=== PATIENT | male | born 1930 | race Caucasian/White ===

== ENCOUNTER 2018-01-07 18:38 | Emergency (ER) | payer OTHER ==
--- NOTE | 2018-01-07 19:25 | RAD REPORT ---
EXAM DESCRIPTION: CT - Abdomen Pelvis Wo Contrast - 01/07/2018 7:10 pm CLINICAL HISTORY: Abdominal pain. COMPARISON: None TECHNIQUE: CT imaging of the abdomen and pelvis was performed without contrast. Solid organ, bowel a nd vascular assessment is limited due to lack of IV and oral contrast. All CT scans are performed using dose optimization technique as appropriate and may include automated exposure control or mA/KV adjustment according to patient size. FINDINGS: Linear bibasilar subsegmental atelectasis in both lung bases, slightly greater on the righ t.Gastrostomy tube tip is in the stomach. The liver, spleen, pancreas, adrenal glands and kidneys are within normal limits for a limited non-co ntrast examination.Significant inflammatory changes surround the gallbladder with pericholecystic flu id present. Secondary inflammatory dilatation of the duodenal C-loop suspected. The findings are most likely related to acute cholecystitis. No bowel obstruction, free air, free fluid or abscess. The appendix is normal. Small fat containing inguinal hernias bilaterally, slightly larger on the right. The osseous structures are within normal limits.Lumbar degenerative changes are present. IMPRESSION: Acute cholecystitis is suspected. A limited non-contrast examination was performed as detailed.
--- NOTE | 2018-01-07 19:29 | EDPHYS ---
Physician Documentation [facility] Name: Payam Mack Age: 87 yrs Sex: Male : 1930 Arrival Date: 01/07/2018 Time: 18:42 Bed 18 Private MD: ED Physician Khoi Nice HPI: 01/07 19:07 This 87 yrs old Male presents to ER via EMS with complaints of Problem With snw Feeding Tube, Abdominal Distention. 19:07 Onset: The symptoms/episode began/occurred suddenly, last night. Associated signs and snw symptoms: Pertinent positives: pain to right upper and lower quad. The patient has not experienced similar symptoms in the past. It is unknown whether or not the patient has recently seen a physician. Historical: - Allergies: 18:47 No Known Allergies; ed1 - Home Meds: 18:47 levothyroxine 50 mcg tab 1 tab once daily [Active]; methylprednisolone 4 mg Oral tab 1 ed1 tab twice a day [Active]; amlodipine 5 mg tab 1 tab once daily [Active]; sertraline 25 mg oral tab 1 tab once daily [Active]; - PMHx: 18:47 Hypothyroidism; Hypertension; Depression; ed1 21:00 prostate cancer; polymyalgia rheumatica; ed1 - PSHx: 18:47 G-tube placement; ed1 21:00 back surgery; ed1 - Immunization history:: Adult Immunizations up to date. - Social history:: Smoking status: Patient/guardian denies using tobacco. ROS: 19:06 Constitutional: Negative for fever, chills, and weight loss, Eyes: Negative for injury, snw pain, redness, and discharge, ENT: Negative for injury, pain, and discharge, Neck: Negative for injury, pain, and swelling, Cardiovascular: Negative for chest pain, palpitations, and edema, Respiratory: Negative for shortness of breath, cough, wheezing, and pleuritic chest pain, Abdomen/GI: Positive for abdominal pain, can't burp, nausea, no vomiting, diarrhea, or constipation, Back: Negative for injury and pain. 19:07 MS/Extremity: Negative for injury and deformity, Skin: Negative for injury, rash, and snw discoloration, Neuro: Negative for headache, weakness, numbness, tingling, and seizure, Psych: Negative for depression, anxiety, suicide ideation, homicidal ideation, and hallucinations. Exam: 18:59 Constitutional: This is a well developed, well nourished patient who is awake, alert, snw and in no acute distress. Head/Face: Normocephalic, atraumatic. Eyes: Pupils equal round and reactive to light, extra-ocular motions intact. Lids and lashes normal. Conjunctiva and sclera are non-icteric and not injected. Cornea within normal limits. Periorbital areas with no swelling, redness, or edema. ENT: Nares patent. No nasal discharge, no septal abnormalities noted. Tympanic membranes are normal and external auditory canals are clear. Oropharynx with no redness, swelling, or masses, exudates, or evidence of obstruction, uvula midline. Mucous membranes moist. Neck: Trachea midline, no thyromegaly or masses palpated, and no cervical lymphadenopathy. Supple, full range of motion without nuchal rigidity, or vertebral point tenderness. No Meningismus. Chest/axilla: Normal chest wall appearance and motion. Nontender with no deformity. No lesions are appreciated. Cardiovascular: Regular rate and rhythm with a normal S1 and S2. No gallops, murmurs, or rubs. Normal PMI, no JVD. No pulse deficits. Respiratory: Lungs have equal breath sounds bilaterally, clear to auscultation and percussion. No rales, rhonchi or wheezes noted. No increased work of breathing, no retractions or nasal flaring. Back: No spinal tenderness. No costovertebral tenderness. Full range of motion. Skin: Warm, dry with normal turgor. Normal color with no rashes, no lesions, and no evidence of cellulitis. MS/ Extremity: Pulses equal, no cyanosis. Neurovascular intact. Full, normal range of motion. Neuro: Awake and alert, GCS 15, oriented to person, place, time, and situation. Cranial nerves II-XII grossly intact. Motor strength 5/5 in all extremities. Sensory grossly intact. Cerebellar exam normal. Normal gait. 18:59 Abdomen/GI: Inspection: distension, that is moderate, Bowel sounds: tinkling, Palpation: severe abdominal tenderness, in the right upper quadrant and right lower quadrant, ventral hernia, soft, reducible. Vital Signs: 18:47 BP 108 / 61; Pulse 85; Resp 18; Temp 98.3(O); Pulse Ox 94% on R/A; Weight 74.84 kg (R); ed1 Height 5 ft. 7 in. (170.18 cm) (R); Pain 6/10; 20:01 BP 128 / 63; Pulse 83; Resp 18; Pulse Ox 95% on R/A; Pain 6/10; ed1 21:02 BP 104 / 52; Pulse 88; Resp 15; Temp 97.2(TE); Pulse Ox 96% on 2 lpm NC; Pain 2/10; ed1 22:32 BP 105 / 60; Pulse 80; Resp 18; Pulse Ox 96% on 2 lpm NC; kr2 18:47 Body Mass Index 25.84 (74.84 kg, 170.18 cm) ed1 MDM: 19:14 Patient medically screened. snw 19:29 Data reviewed: vital signs, nurses notes. Data interpreted: Pulse oximetry: on room air snw is 94 %. Interpretation: acceptable. Counseling: I had a detailed discussion with the patient and/or guardian regarding: the historical points, exam findings, and any diagnostic results supporting the discharge/admit diagnosis, radiology results, the need for further work-up and treatment in the hospital. Physician consultation: Bridgett Lucas MD was called at 19:29, was contacted at 19:29, regarding admission, to the medical/surgical unit. would like consultation with Dr. Dr. Gunter. 20:00 ED course: Dr. Gunter evaluated pt in ED and recommends transfer for higher level of snw care to Dr. Rivas. Dr. Gunter discussed pt with Dr. Rivas who accepts pt consult at [facility]. Transfer center contacted.. 20:06 Physician consultation: in the emergency department to see patient at 20:00, recommends snw transfer for higher level of care.. 01/07 18:56 Order name: Amylase, Serum; Complete Time: 19:59 snw 01/07 18:56 Order name: Basic Metabolic Panel; Complete Time: 19:59 snw 01/07 18:56 Order name: CBC with Diff; Complete Time: 21:24 snw 01/07 18:56 Order name: Creatinine for Radiology; Complete Time: 19:56 snw 01/07 18:56 Order name: Hepatic Function; Complete Time: 19:59 snw 01/07 18:56 Order name: Lipase; Complete Time: 19:59 snw 01/07 18:56 Order name: Urine Microscopic Only snw 01/07 18:56 Order name: Blood Culture Adult (2) snw 01/07 18:59 Order name: CT Abd/Pelvis - Without Cont; Complete Time: 19:26 snw 01/07 21:08 Order name: CBC Smear Scan; Complete Time: 21:24 [facility] 01/07 18:56 Order name: IV Saline Lock; Complete Time: 19:06 snw 01/07 18:56 Order name: Labs collected and sent; Complete Time: 19:06 snw Administered Medications: 20:02 Drug: Zosyn 3.375 grams Route: IVPB; Infused Over: 60 mins; Site: right forearm; ed1 22:29 Follow up: Response: No adverse reaction; IV Status: Completed infusion kr2 20:03 Drug: NS 0.9% 1000 ml Route: IV; Rate: 75 ml/hr; Site: right forearm; ed1 22:29 Follow up: IV Status: Infusion continued upon transfer kr2 20:26 Drug: fentaNYL (PF) 25 mcg Route: IVP; Site: right forearm; ak1 22:29 Follow up: Response: No adverse reaction; Pain is decreased kr2 22:30 Drug: fentaNYL (PF) 25 mcg Route: IVP; Site: right forearm; kr2 22:41 Follow up: Response: No adverse reaction; Pain is decreased kr2 Disposition: 01/07/18 20:37 Transfer ordered to [facility]. Diagnosis are Acute abdomen, Cholecystitis. - Reason for transfer: Higher level of care. - Accepting physician is Olive. - Condition is Fair. - Problem is new. - Symptoms have worsened. Addendum: 01/09/2018 10:57 Co-signature as Attending Physician, Khoi Nice MD I agree with the assessment and w a plan of care. Signatures: Dispatcher [employer] EDMS Kandi Andujar, LITHOGRAPHER HELPER-C LITHOGRAPHER HELPER-Csnw Sue Spivey, MOTORCYCLE SUBASSEMBLY REPAIRER MOTORCYCLE SUBASSEMBLY REPAIRER ed1 Angi Levy, RN RN ak1 Martín Schwartz MD MD gs Appiah, William, MD MD wa Reaves, Karey, RN RN kr2 Corrections: (The following items were deleted from the chart) 01/07 19:01 18:56 Abdomen Pelvis W Con+CT.RAD.BRZ ordered. EDAL EDMS 20:00 19:28 Hospitalization Ordered by Bridgett Lucas MD for Inpatient Admission. Preliminary snw diagnosis is Acute abdomen; Cholecystitis. Bed requested for Telemetry/MedSurg (Inpatient). Status is Inpatient Admission. Condition is Fair. Problem is new. Symptoms have worsened. UTI on Admission? No. snw 22:41 20:37 01/07/2018 20:37 Transfer ordered to [facility]. Diagnosis is kr2 Acute abdomen; Cholecystitis. Reason for transfer: Higher level of care. Accepting physician is Olive. Condition is Fair. Problem is new. Symptoms have worsened. snw
--- NOTE | 2018-01-07 19:29 | ER ---
Nurse's Notes [facility] Name: Payam Mack Age: 87 yrs Sex: Male : 1930 Arrival Date: 01/07/2018 Time: 18:42 Bed 18 Private MD: Diagnosis: Acute abdomen;Cholecystitis Presentation: 01/07 18:43 Presenting complaint: EMS states: He has been having trouble with his g-tube and ed1 feeling bloated. Transition of care: patient was not received from another setting of care. Onset of symptoms was January 07, 2018. Initial Sepsis Screen: Does the patient meet any 2 criteria? No. Patient's initial sepsis screen is negative. Does the patient have a suspected source of infection? No. Patient's initial sepsis screen is negative. Care prior to arrival: IV initiated. 22 GA, in the right forearm, Glucose check: 124. 18:43 Method Of Arrival: EMS: [facility] ed1 19:32 Acuity: KATE 3 ph Triage Assessment: 18:47 General: Appears uncomfortable, Behavior is calm, cooperative. Pain: Complains of pain ed1 in abdomen Pain does not radiate. Pain currently is 6 out of 10 on a pain scale. Quality of pain is described as aching, Pain began 1 day ago. Is continuous. GI: Abdomen is distended, PEG tube in place, clamped. Site clean. Bowel sounds hypoactive in right upper quadrant, right lower quadrant and left lower quadrant Abdomen is tender to palpation X 4 quads. Reports bloating, nausea, Patient currently denies diarrhea, vomiting. : No signs and/or symptoms were reported regarding the genitourinary system. Historical: - Allergies: 18:47 No Known Allergies; ed1 - Home Meds: 18:47 levothyroxine 50 mcg tab 1 tab once daily [Active]; methylprednisolone 4 mg Oral tab 1 ed1 tab twice a day [Active]; amlodipine 5 mg tab 1 tab once daily [Active]; sertraline 25 mg oral tab 1 tab once daily [Active]; - PMHx: 18:47 Hypothyroidism; Hypertension; Depression; ed1 21:00 prostate cancer; polymyalgia rheumatica; ed1 - PSHx: 18:47 G-tube placement; ed1 21:00 back surgery; ed1 - Immunization history:: Adult Immunizations up to date. - Social history:: Smoking status: Patient/guardian denies using tobacco. Screenin:43 Abuse screen: Denies threats or abuse. Denies injuries from another. Nutritional ed1 screening: No deficits noted. Tuberculosis screening: No symptoms or risk factors identified. Fall Risk None identified. Assessment: 18:43 General: Appears uncomfortable, Behavior is calm, cooperative. Pain: Complains of pain ed1 in abdomen Pain does not radiate. Pain currently is 6 out of 10 on a pain scale. Quality of pain is described as aching, throbbing, Pain began 2-3 days ago. Is continuous. Neuro: Level of Consciousness is awake, alert, obeys commands, Oriented to person, place, time, situation, Executive Admin are equal bilaterally. Cardiovascular: Denies chest pain, Heart tones S1 S2 present. Respiratory: Airway is patent Respiratory effort is even, unlabored, Respiratory pattern is regular, symmetrical, Breath sounds are clear bilaterally. GI: Abdomen is distended, PEG tube in place, clamped. Site clean. Bowel sounds hypoactive in right upper quadrant, right lower quadrant and left lower quadrant Abdomen is tender to palpation X 4 quads. Reports nausea. : No signs and/or symptoms were reported regarding the genitourinary system. EENT: No signs and/or symptoms were reported regarding the EENT system. Derm: Skin is fragile, is thin, with poor turgor Skin is dry, Skin is normal, Skin temperature is warm. Musculoskeletal: Circulation, motion, and sensation intact. 20:01 Reassessment: Patient appears in no apparent distress at this time. No changes from ed1 previously documented assessment. Patient and/or family updated on plan of care and expected duration. Pain level reassessed. Patient is alert, oriented x 3, equal unlabored respirations, skin warm/dry/pink. Patient states symptoms have not improved. 20:32 Reassessment: Applied 2 NC, oxygen saturation dropped to 89% on room air., increased to bs1 95%. 21:02 Reassessment: Patient appears in no apparent distress at this time. No changes from ed1 previously documented assessment. Patient and/or family updated on plan of care and expected duration. Pain level reassessed. Patient is alert, oriented x 3, equal unlabored respirations, skin warm/dry/pink. Patient states feeling better. 22:25 Reassessment: Report called to receiving nurse NEFTALI Small at [facility]. kr2 22:31 Reassessment: Patient appears in no apparent distress at this time. Patient and/or kr2 family updated on plan of care and expected duration. Pain level reassessed. Patient is alert, oriented x 3, equal unlabored respirations, skin warm/dry/pink. Medicated for pain prior to transport. Report given to Vikram Dubose [facility]. Vital Signs: 18:47 BP 108 / 61; Pulse 85; Resp 18; Temp 98.3(O); Pulse Ox 94% on R/A; Weight 74.84 kg (R); ed1 Height 5 ft. 7 in. (170.18 cm) (R); Pain 6/10; 20:01 BP 128 / 63; Pulse 83; Resp 18; Pulse Ox 95% on R/A; Pain 6/10; ed1 21:02 BP 104 / 52; Pulse 88; Resp 15; Temp 97.2(TE); Pulse Ox 96% on 2 lpm NC; Pain 2/10; ed1 22:32 BP 105 / 60; Pulse 80; Resp 18; Pulse Ox 96% on 2 lpm NC; kr2 18:47 Body Mass Index 25.84 (74.84 kg, 170.18 cm) ed1 ED Course: 18:42 Patient arrived in ED. iw 18:42 Sue Spivey LVN is Primary Nurse. ed1 18:43 Patient has correct armband on for positive identification. Placed in gown. Bed in low ed1 position. Call light in reach. Side rails up X2. Pulse ox on. NIBP on. 18:47 Arm band placed on left wrist. ed1 18:49 Kandi Andujar FNP-C [facility]. snw 18:49 Khoi Nice MD is Attending Physician. snw 19:[address] jj2 19:10 CT Abd/Pelvis - Without Cont In Process Unspecified. EDMS 19:11 CT completed. Patient tolerated procedure well. Patient moved back from CT. vm2 19:28 Bridgett Lucas MD is Hospitalizing Provider. snw 19:32 Triage completed. ph 21:52 Primary Nurse role handed off by Sue Spivey LVN ed1 22:33 No provider procedures requiring assistance completed. Patient transferred, IV remains kr2 in place. Administered Medications: 20:02 Drug: Zosyn 3.375 grams Route: IVPB; Infused Over: 60 mins; Site: right forearm; ed1 22:29 Follow up: Response: No adverse reaction; IV Status: Completed infusion kr2 20:03 Drug: NS 0.9% 1000 ml Route: IV; Rate: 75 ml/hr; Site: right forearm; ed1 22:29 Follow up: IV Status: Infusion continued upon transfer kr2 20:26 Drug: fentaNYL (PF) 25 mcg Route: IVP; Site: right forearm; ak1 22:29 Follow up: Response: No adverse reaction; Pain is decreased kr2 22:30 Drug: fentaNYL (PF) 25 mcg Route: IVP; Site: right forearm; kr2 22:41 Follow up: Response: No adverse reaction; Pain is decreased kr2 Outcome: 19:28 Decision to Hospitalize by Provider. snw 20:37 ER care complete, transfer ordered by MD. snw 22:33 Transferred by ground EMS to [facility], Transfer form completed. kr2 22:33 Condition: stable 22:33 Instructed on the need for transfer, Demonstrated understanding of instructions. 22:41 Patient left the ED. kr2 Signatures: Dispatcher [employer] EDMS Kandi Andujar, AIRPLANE TESTER-C AIRPLANE TESTER-Csnw Rob Vidal Irene, RN Sue Rosado, FACTORY HAND FACTORY HAND ed1 Angi Levy RN RN ak1 Juliette Hawk RN RN Violette Mora [facility] Janey Rinaldi RN RN kr2 Deja Lombardo RN RN bs1
[2018-01-07 19:42] LABS: Absolute Lymphocytes (CBC) 0.5 K/uL (0.7-4.9); Absolute Monocytes 0.6 K/uL (0.1-1.3); Absolute Neutrophil 14.4 K/uL (1.8-8.0); Basophils % 0.8 % (0-1.3); Eosinophils % 0.2 % (0-4.4); Lymphocytes % 3.3 % (15.3-44.8); MCH 31.4 pg (27.0-35.0); MCV 91.6 fL (80-100); MPV 7.1 fL (7.6-11.3); RBC Red Blood Cell Count 4.69 M/uL (4.33-5.43)
[2018-01-07] MEDS ORDERED: NA CHLORIDE 0.9% 1,000 ML ONE (19:42)
[2018-01-07] MEDS ORDERED: PIPER/TAZO/NS 3.375gm 3.375 GM/100 ML BAG ONE (19:42)
[2018-01-07 19:51] LABS: Potassium 3.9 mEq/L (3.6-5.0)
[2018-01-07 19:57] LABS: Albumin 3.7 g/dL (3.2-5.5); Bilirubin Direct 0.2 mg/dL (0-0.2); Bilirubin Total 1.1 mg/dL (0.3-1.2); Protein, Total 6.6 g/dL (6.0-8.3)
[2018-01-07] MEDS ORDERED: FENTANYL CITR 100 MCG/2 ML ONE ×2 (20:24→22:23)
[2018-01-07 21:07] LABS: Blood Morphology Comment NOT SEEN (NOT SEEN); Platelet Estimate ADEQ; Urine White Blood Cell Casts OK
--- NOTE | 2018-01-08 01:48 | CON ---
Date of Consultation: 01/07/2018 Diagnosis: Acute abdominal pain. History Of Present Illness: This is the case of an 87-year-old. The patient comes to us with about a week's history of epigastric and right upper quadrant pain. Brought to the ER, found to have duode nitis and cholecystitis with a lot of peritoneal inflammation over the area, and a surgical consult w as obtained. The patient states he has not eaten well for the last few days. He has been nauseous a nd vomiting, and he cannot get his food to go down. He feels like it stays in his stomach. He does not remember any problems before. He claimed he has no medical issues at all, with no surgeries. Ot herwise healthy as per . He denies any dysuria, hematuria, hematochezia, or melena. We do not k now when was his last colonoscopy; he does not remember. Past Medical History: As per , although the patient states he does not have any, the patient has hypertension and hypothyroidism. Past Surgical History: Includes G-tube placement in the past. Allergies: NONE. Social History: He does not smoke. He does not drink alcohol. Family History: Unremarkable. Review of Systems: Constitutional: The patient denies any fevers or chills. Gastrointestinal: The patient stated nausea, vomiting, and right upper quadrant pain. Respiratory: He denies any shortness of breath. Genitourinary: He denies any dysuria or hematuria. Physical Examination: General: The patient is awake and alert. HEENT: Pupils are equal and reactive, anicteric. Neck: Supple. Chest: Clear. Abdomen: Epigastric and right upper quadrant pain with Arceo sign positive. Rectal: Deferred. Extremities: Good capillary refill. Laboratory Data: Blood work shows WBC count of 15.7, hemoglobin of 14.7, and platelets of 165. Gluc ose 131, total bilirubin 1.1, and lipase 15. UA is pending. CAT scan of abdomen and pelvis, interpr eted by Dr. Worthington as acute cholecystitis with duodenitis and inflammation with dilatation of the duode nal C-loops. Significant inflammatory changes surrounding the gallbladder with pericholecystic fluid present. Assessment/recommendations: This is an 87-year-old patient with duodenitis, C-loop dilatation, inabi lity to have any foot intake, and cholecystitis too, with a lot of inflammatory changes in the perich olecystic and also periduodenal area. We suspect gallbladder may be the etiology of this. I discuss ed the case with Dr. Ulrich in [place] in a tertiary center. This patient is an 87-year-old. He has a lot of inflammation. This will require a higher level of care with some help to get this gall bladder out. He may even require a cystostomy tube in the gallbladder to let this cool down if Dr. Justina hurtado believes that medically he is okay and clinically he is okay to go for that. I explained t hat to the patient's family. They agree, and they are happy that the patient going to [place], and t he [facility] was called immediately. The patient right now is clinically stable for transfer. This case was discussed with the ER physician and the attending physician who agreed with the transfer. EDER/FREDDY Voice ID: [id number] Report ID: [id number]
== END 2018-01-07 22:41 | disposition short-term general hospital (02) | DRG 392 ==
LOC: ER 18:38 → ERHOLD 19:28 → UNDOADMIN 19:28 → UNDODISIN 22:40 → ER 22:41
DX: K29.80 Duodenitis without bleeding (principal); K81.0 Acute cholecystitis; I10 Essential (primary) hypertension; E03.9 Hypothyroidism, unspecified
CPT/HCPCS: 36415; 74176; 80048; 80076; 82150; 83690; 85025; 87040; 96365; 96366; 96375; 99285; J2543; J3010; J7030

== ENCOUNTER 2020-02-25 16:30 | Emergency (ER) | payer OTHER ==
--- OUTSIDE RECORDS SUMMARY | 2020-02-25 17:01 | XMS REPORT | Clinical Summary ---
:1930 Author Organization [facility] Address [address] [place] [address] Care Team Providers Name Role Phone Asked, Pcp Primary Care Provider Unavailable Allergies No Known Allergies Medications Medication Sig Dispensed Refills Start Date End Date Status levothyroxine sodium Take 75 mcg by 0 Active (TIROSINT) 75 mcg capsule mouth every morning. methylPREDNISolone Take 4 mg by 0 Active (MEDROL) 4 MG tablet mouth 2 (two) times a day. amLODIPine (NORVASC) 5 mg Take 5 mg by 0 Active tablet mouth nightly. sertraline (ZOLOFT) 25 MG Take 25 mg by 0 Active tablet mouth nightly. tamsulosin (FLOMAX) 0.4 Take 1 capsule 14 capsule 0 04/05/2018 Active mg capsule (0.4 mg total) by mouth daily. Active Problems Problem Noted Date Acute calculous cholecystitis 03/30/2018 Acute cholecystitis 01/08/2018 Social History Tobacco Use Types Packs/Day Years Used Date Former Smoker Cigarettes Quit: 1965 Smokeless Tobacco: Never Used Comments: quit 15 years ago Alcohol Use Drinks/Week oz/Week Comments No Sex Assigned at Date Recorded Not on file Job Start Date Occupation Industry Not on file Not on file Not on file Travel History Travel Start Travel End No recent travel history available. Last Filed Vital Signs Not on file Plan of Treatment Health Maintenance Due Date Last Done Comments SHINGLES VACCINES (#1) 1982 65+ PNEUMOCOCCAL VACCINE (1 of 2 - PCV13) 1997 INFLUENZA VACCINE 04/06/2020 Implants Implanted Type Area Branch Library Clerk Device Shelf Model / Identifier Expiration Serial / Date Lot Clip Ligtng Jensenck Hemoclip Plus W/ Tape Ti Lg - [id number] Medica l N/A: N/A TELEFLEX [id number] / Implanted: Qty: 1 on 03/30/2018 by Yarelis Disla MD at [facility] Clips for MEDICAL / Internal Use Clip Ligtng Pramod Hemoclip Plus W/ Tape Ti Med Lg - [id number] Me dical N/A: N/A WECK CLOSURE [id number] / Implanted: Qty: 1 on 03/30/2018 by Yarelis Disla MD at [facility] Clips for SYSTEMS / Internal Use [employer] Titanium Ligating Clips, Medium (Cartridge Of 6 Clips, Pack Of 30 Cartridges) Surgical N/A: N/A 05/06/2022 [id number] / Implanted: Qty: 1 on 03/30/2018 by Yarelis Disla MD at [facility] Fixation / Device [id number] Plug Hrnia Rpr Perfix Med 1.3x1.55in - [id number] Surgical Right: [employer] 06/03/2022 [id number] / Implanted: Qty: 1 on 03/30/2018 by Yarelis Disla MD at [facility] Mesh or Inguinal / Tissue [id number] Barrier Products Plug Hrnia Rpr Perfix Lg 1.6x1.9in - [id number] Surgical Right: [employer] 2022 [id number] / Implanted: Qty: 1 on 03/30/2018 by Yarelis Disla MD at [facility] Mesh or Inguinal / Tissue [id number] [employer] Plug Hrnia Rpr Perfix Med 1.3x1.55in - [id number] Surgical Right: [employer] 2022 [id number] / Implanted: Qty: 1 on 03/30/2018 by Yarelis Disla MD at [facility] Mesh or Inguinal / Tissue [id number] [employer] Results Not on fileafter 02/24/2019 Insurance Payer Benefit Plan / Subscriber ID Effective Dates Phone Addre ss Type Group [employer] xxxxxxxxxxx 2018-Leticia BYERSO MODESTAO SHAHNAZ t Advance Directives For more information, please contact: [phone] Type Date Recorded 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
--- OUTSIDE RECORDS SUMMARY | 2020-02-25 17:01 | XMS REPORT | Continuity of Care Document ---
:1930 Author Organization [facility] t Address [address] [place] [address] Care Team Providers Name Role Phone Asked, Pcp Primary Care Physician Unavailable Payers Payer Name Policy Type Policy Number Effective Date Expiration Date S ource Problems Condition Condition Condition Status Onset Resolution Last Treating Co mments Source Name Details Category Date Date Treatment Clinician Date Acute Acute Disease Active [place] calculous calculous 7-25 Meth paty cholecysti cholecysti 00:00: st tis tis 00 Acute Acute Disease Active [place] cholecysti cholecysti 5-05 Me thodi tis tis 00:00: st 00 Allergies, Adverse Reactions, Alerts Allergy Allergy Status Severity Reaction(s) Onset Inactive Treating Comm ents Source Name Type Date Date Clinician No Known DA Active [facility] 00[facility]: [facility] Social History Social Habit Start Date Stop Date Quantity Comments Source History of Current smoker [facility]odist tobacco use Sex Assigned At [place] M ethodist Alcohol intake 2018-04-06 2018-04-06 Current [facility] thodist 00:00:00 00:00:00 non-drinker of alcohol (finding) Tobacco Comment 2018-01-08 2018-01-08 quit 15 years [place] [facility] 00:00:00 00:00:00 ago Smoking Status Start Date Stop Date Source Former smoker 2018-04-06 00:00:00 2018-04-06 00:00:00 [place] [facility] Medications Ordered Filled Start Stop Current Ordering Indication Dosage Frequency Signature Comments Components Source Medication Medication Date Date Medication? Clinician (SIG) Name Name levothyroxi 2018-0 Yes 75ug QD Take 75 Magdalena ston ne sodium 8-03 mcg by Methodi (TIROSINT) 12:07: mouth st 75 mcg 32 every capsule morning. methylPREDN 2018-0 Yes 4mg Q.5D Take 4 mg [place] ISolone 8-03 by mouth 2 Method i (MEDROL) 4 12:07: (two) st MG tablet 32 times a day. amLODIPine 2018-0 Yes 5mg QD Take 5 mg [place] (NORVASC) 5 8-03 by mouth Meth paty mg tablet 12:07: nightly. st 32 sertraline 2018-0 Yes 25mg QD Take 25 mg [place] (ZOLOFT) 25 8-03 by mouth Meth paty MG tablet 12:07: nightly. st 32 tamsulosin 2017- Yes .4mg QD Take 1 [place] (FLOMAX) 7-31 capsule Methodi 0.4 mg 00:00: (0.[address] capsule 00 total) by mouth daily. Procedures This patient has no known procedures. Plan of Care Planned Activity Planned Date Details Comments Source Future Scheduled 2020-04-06 INFLUENZA VACCINE Irvin balbuena [facility] Test 00:00:00 [code = INFLUENZA VACCINE] Future Scheduled 1997 65+ PNEUMOCOCCAL [place] [facility] Test 00:00:00 VACCINE (1 of 2 - PCV13) [code = 65+ PNEUMOCOCCAL VACCINE (1 of 2 - PCV13)] Future Scheduled 1982 SHINGLES VACCINES (#1) [facility] Test 00:00:00 [code = SHINGLES VACCINES (#1)] Results Test Description Test Time Test Comments Results Result [facility] e Comments - XR WRIST 3+V RT 2019-12-04 Patient Name: 13:50:00 BRUCE PICKETT Unit No: [id number] EXAMS: CPT CODE: [id number] XR WRIST 3+V RT [id number] Reason: swelling - XR WRIST 3+V RT 12/04/2019 1:37 PM Indication: Swelling COMPARISON: None FINDINGS: Severe irregular chondrocalcinosis. Multiple intercarpal lucencies probably subchondral geodes rather than erosions. Severe thumb base DJD. I see no fracture nor dislocation. Impression: No acute disease, radiographically. at 1350 Reported and signed by: Vivek Amanda MD CC: Link Flores MD Technologist: Yamileth CASTILLO Trscrpt Dt/ ([id number] Orig Print D/T: S: 12/04/2019 ([id number]) [facility] NAME: BRUCE PICKETT [id number] [facility] PHYS: PEPDA. [place] [address] : 1930 AGE: 89 SEX: M LOC: NAHOMI PHONE #: [phone] EXAM DATE: 12/04/2019 STATUS: PRE ER FAX #: RAD NO: DC Dt: PAGE 1 Signed Report
[2020-02-25] MEDS ORDERED: TETANUS & DIPHTHERIA TOX,ADULT 0.5 ML VIAL ONE (17:18)
--- NOTE | 2020-02-25 17:47 | RAD REPORT ---
EXAM DESCRIPTION: CT - Head C Spine Mpr Wo Con - 02/25/2020 5:27 pm CLINICAL HISTORY: Head and neck injury status post fall. Head and neck pain COMPARISON: 2016 TECHNIQUE: Computed axial tomography of the head and cervical spine was obtained. Sagittal and coronal reconstruction was performed. All CT scans are performed using dose optimization technique as appropriate and may include automated exposure control or mA/KV adjustment according to patient size. FINDINGS: An intracranial bleed is not seen. The ventricles are normal in caliber. An extra-axial fl uid collection is not noted. Chronic right maxillary sinusitis A cervical fracture is not visualized. No dislocation is noted. IMPRESSION: No acute intracranial abnormality is seen. A cervical fracture is not visualized. If the patient continues to have symptoms to suggest intracra nial /spinal cord pathology then MRI would be recommended
--- NOTE | 2020-02-25 18:23 | EDPHYS ---
Physician Documentation [facility] Name: Payam Mack Age: 89 yrs Sex: Male : 1930 Arrival Date: 02/25/2020 Time: 17:03 Bed 3 Private MD: ED Physician Da Peña HPI: 02/24 17:11 This 89 yrs old Male presents to ER via EMS with complaints of Fall Injury, snw Head Injury Without LOC-Adult. 17:11 Details of fall: The patient fell from an upright position, carrying groceries and the snw basket went one way and "I went with it". Onset: The symptoms/episode began/occurred suddenly, just prior to arrival. Associated injuries: The patient sustained injury to the head. Severity of symptoms: At their worst the symptoms were moderate. It is unknown whether or not the patient has had similar symptoms in the past. It is unknown whether or not the patient has recently seen a physician. Historical: - Allergies: 17:07 No Known Allergies; sv - PMHx: 17:07 Depression; Hypertension; Hypothyroidism; polymyalgia rheumatica; Prostate Cancer; CVA; sv - PSHx: 17:07 back surgery; G-tube placement; sv - Immunization history:: Adult Immunizations up to date. - Immunization history: Last tetanus immunization: unknown. - Social history:: Smoking status: . ROS: 17:09 Constitutional: Negative for fever, chills, and weight loss, Eyes: Negative for injury, snw pain, redness, and discharge, ENT: Negative for injury, pain, and discharge, Neck: Negative for injury, pain, and swelling, Cardiovascular: Negative for chest pain, palpitations, and edema, Respiratory: Negative for shortness of breath, cough, wheezing, and pleuritic chest pain, Abdomen/GI: Negative for abdominal pain, nausea, vomiting, diarrhea, and constipation, Back: Negative for injury and pain, : Negative for injury, bleeding, discharge, and swelling, MS/Extremity: Negative for injury and deformity. 17:09 Skin: Positive for abrasion(s), hematoma. 17:09 Neuro: Positive for laceration and contusion to head, s/p fall, no LOC. Exam: 17:06 Head/Face: Normocephalic, atraumatic. snw 17:06 Eyes: Pupils equal round and reactive to light, extra-ocular motions intact. Lids and lashes normal. Conjunctiva and sclera are non-icteric and not injected. Cornea within normal limits. Periorbital areas with no swelling, redness, or edema. ENT: Nares patent. No nasal discharge, no septal abnormalities noted. Tympanic membranes are normal and external auditory canals are clear. Oropharynx with no redness, swelling, or masses, exudates, or evidence of obstruction, uvula midline. Mucous membranes moist. Neck: Trachea midline, no thyromegaly or masses palpated, and no cervical lymphadenopathy. Supple, full range of motion without nuchal rigidity, or vertebral point tenderness. No Meningismus. Chest/axilla: Normal chest wall appearance and motion. Nontender with no deformity. No lesions are appreciated. Cardiovascular: Regular rate and rhythm with a normal S1 and S2. No gallops, murmurs, or rubs. Normal PMI, no JVD. No pulse deficits. Respiratory: Lungs have equal breath sounds bilaterally, clear to auscultation and percussion. No rales, rhonchi or wheezes noted. No increased work of breathing, no retractions or nasal flaring. Abdomen/GI: Soft, non-tender, with normal bowel sounds. No distension or tympany. No guarding or rebound. No evidence of tenderness throughout. G-tube in place but not used in 1+ years Back: No spinal tenderness. No costovertebral tenderness. Full range of motion. MS/ Extremity: Pulses equal, no cyanosis. Neurovascular intact. Full, normal range of motion. Neuro: Awake and alert, GCS 15, oriented to person, place, time, and situation. Cranial nerves II-XII grossly intact. Motor strength 5/5 in all extremities. Sensory grossly intact. Cerebellar exam normal. C-collar and backboard, placed prior to arrival. Backboard removed with c-spine stabilized. Psych: Awake, alert, with orientation to person, place and time. Behavior, mood, and affect are within normal limits. 17:06 Head/face: Noted is contusion, hematoma, that is mild, of the left side of forehead and right frontal area. 17:06 Skin: Appearance: normal except for affected area, injury, abrasion(s), small abrasion noted, to left elbow and dorsal hand, right hand. Vital Signs: 17:07 BP 138 / 72; Pulse 76; Resp 16; Temp 98.9; Pulse Ox 95% ; sv 17:45 BP 127 / 64; Pulse 71; Resp 16; Temp 98.7; Pulse Ox 96% ; sv 18:30 BP 151 / 70; Pulse 65; Resp 16; Pulse Ox 98% on R/A; sv Bucks Coma Score: 16:54 Eye Response: spontaneous(4). Verbal Response: oriented(5). Motor Response: obeys sv commands(6). Total: 15. 17:45 Eye Response: spontaneous(4). Verbal Response: oriented(5). Motor Response: obeys sv commands(6). Total: 15. Trauma Score (Adult): 16:54 Eye Response: spontaneous(1); Verbal Response: oriented(1); Motor Response: obeys sv commands(2); Systolic BP: > 89 mm Hg(4); Respiratory Rate: 10 to 29 per min(4); Bucks Score: 15; Trauma Score: 12 17:45 Eye Response: spontaneous(1); Verbal Response: oriented(1); Motor Response: obeys sv commands(2); Systolic BP: > 89 mm Hg(4); Respiratory Rate: 10 to 29 per min(4); Nheemiah Score: 15; Trauma Score: 12 MDM: 17:13 Patient medically screened. snw 18:25 Data reviewed: vital signs, nurses notes. Data interpreted: Pulse oximetry: on room air snw is 95 %. Interpretation: acceptable. Counseling: I had a detailed discussion with the patient and/or guardian regarding: the historical points, exam findings, and any diagnostic results supporting the discharge/admit diagnosis, the presence of at least one elevated blood pressure reading (>120/80) during this emergency department visit, radiology results, the need for outpatient follow up, to return to the emergency department if symptoms worsen or persist or if there are any questions or concerns that arise at home. Special discussion: I have referred the patient to see his PCP for further evaluation of high blood pressure. Based on the patient's history, exam and DX evaluation, there is no indication for emergent intervention or inpatient [place]. It is understood by the patient/guardian that if the SXs persist or worsen they need to return immediately for re-evaluation. I discussed in detail with the patient the higher chance of wound infection based on his presenting history. Based on the history and exam findings, there is no indication for further emergent testing or inpatient evaluation. 02/24 17:05 Order name: CT Head C Spine; Complete Time: 17:50 snw 02/24 17:05 Order name: Wound Care; Complete Time: 18:36 snw 02/24 18:19 Order name: Dermabond; Complete Time: 18:36 snw 02/24 18:20 Order name: Dressing - Wound; Complete Time: 18:36 snw Administered Medications: 17:20 Drug: Tetanus-Diphtheria Toxoid Adult 0.5 ml {[employer] Consultant: [employer]. Exp: sv 10/20/2021. Lot #: [id number]. } Route: IM; Site: left deltoid; 18:00 Follow up: Response: No adverse reaction sv 19:06 Drug: Augmentin 875 mg Route: PO; snw 19:07 Follow up: Response: Medication administered at discharge. sv 19:06 Drug: traMADol 50 mg Route: PO; snw 19:07 Follow up: Response: Medication administered at discharge. sv Disposition: 19:11 Co-signature as Attending Physician, Da Peña MD. ma2 Disposition: 02/25/20 18:22 Discharged to Home. Impression: Unspecified injury of face and head, Fall on same level from slipping, tripping and stumbling with subsequent striking against other object, Abrasion of left shoulder, Abrasion of left elbow, Laceration without foreign body of unspecified part of head, Acute sinusitis. - Condition is Stable. - Discharge Instructions: Tissue Adhesive Wound Care, Head Injury, Adult, Fall Prevention in the Home, Sinusitis, Adult, Skin Tear Care, VIS, Tetanus, Diphtheria (Td) - CDC. - Prescriptions for Augmentin 875- 125 mg Oral Tablet - take 1 tablet by ORAL route every 12 hours for 10 days; 20 tablet. Ultram 50 mg Oral Tablet - take 1 tablet by ORAL route every 6 hours As needed; 12 tablet. - Medication Reconciliation Form, Thank You Letter, Antibiotic Education, Prescription Opioid Use form. - Follow up: Emergency Department; When: As needed; Reason: Worsening of condition. Follow up: Private Physician; When: 2 - 3 days; Reason: Recheck today's complaints, Continuance of care, Re-evaluation by your physician. Signatures: Dispatcher [employer] Shawanda Campbell RN RN sv Therrien, Shelly, GYROSCOPIC INSTRUMENT TESTER-C GYROSCOPIC INSTRUMENT TESTER-Csnw Da Peña MD MD ma2 Corrections: (The following items were deleted from the chart) 19:07 18:22 02/25/2020 18:22 Discharged to Home. Impression: Unspecified injury of face and sv head; Fall on same level from slipping, tripping and stumbling with subsequent striking against other object; Abrasion of left shoulder; Abrasion of left elbow; Laceration without foreign body of unspecified part of head; Acute sinusitis. Condition is Stable. Forms are Medication Reconciliation Form, Thank You Letter, Antibiotic Education, Prescription Opioid Use. Follow up: Emergency Department; When: As needed; Reason: Worsening of condition. Follow up: Private Physician; When: 2 - 3 days; Reason: Recheck today's complaints, Continuance of care, Re-evaluation by your physician. snw
--- NOTE | 2020-02-25 18:23 | ER ---
Nurse's Notes [facility] Name: Payam Mack Age: 89 yrs Sex: Male : 1930 Arrival Date: 02/25/2020 Time: 17:03 Bed 3 Private MD: Diagnosis: Unspecified injury of face and head;Fall on same level from slipping, tripping and stumbling with subsequent striking against other object;Abrasion of left shoulder;Abrasion of left elbow;Laceration without foreign body of unspecified part of head;Acute sinusitis Presentation: 02/24 16:54 Chief complaint: EMS states: he had a basket full of things at the [employer] store and the sv basket went one way and took him with it and had a fall injury, denies LOC. Pt has a head injury with skin tears to the left elbow and hand. Vitals WNL. Not on blood thinners. Care prior to arrival: Cervical collar in place. Placed on backboard. kerlix on the head placed by EMS. Mechanism of Injury: Fall from standing position. Trauma event details: Injury occurred in the [facility], Injury occurred: in a public building. Injury occurred: February 25, 2020. 16:54 Acuity: KATE 3 sv 16:54 Method Of Arrival: EMS: [facility] sv 17:07 Coronavirus screen: Proceed with normal triage. Patient denies a cough. Patient denies sv shortness of breath or difficulty breathing. Patient denies measured and/or subjective temperature greater than 100.4F prior to today's visit. Patient denies travel on a cruise ship or to a country the [facility] currently lists as an affected area. Patient denies contact with known and/or suspected case of COVID-19. Ebola Screen: No symptoms or risks identified at this time. Initial Sepsis Screen: Does the patient meet any 2 criteria? No. Patient's initial sepsis screen is negative. Does the patient have a suspected source of infection? No. Patient's initial sepsis screen is negative. Risk Assessment: Do you want to hurt yourself or someone else? Patient reports no desire to harm self or others. Onset of symptoms was February 25, 2020. Trauma Activation: Not Applicable Physician: ED Physician; Name: ; Notified At: ; Arrived At: Physician: General Surgeon; Name: ; Notified At: ; Arrived At: Physician: Radiology; Name: ; Notified At: ; Arrived At: Physician: Respiratory; Name: ; Notified At: ; Arrived At: Physician: Lab; Name: ; Notified At: ; Arrived At: Historical: - Allergies: 17:07 No Known Allergies; sv - PMHx: 17:07 Depression; Hypertension; Hypothyroidism; polymyalgia rheumatica; Prostate Cancer; CVA; sv - PSHx: 17:07 back surgery; G-tube placement; sv - Immunization history:: Adult Immunizations up to date. - Immunization history: Last tetanus immunization: unknown. - Social history:: Smoking status: . Screenin:54 Abuse screen: Denies threats or abuse. Denies injuries from another. Tuberculosis sv screening: No symptoms or risk factors identified. 17:00 Nutritional screening: No deficits noted. Fall Risk None identified. sv Primary Survey: 16:54 NO uncontrolled hemorrhage observed. A: The patient is alert. Airway: patent, No sv supplemental oxygen in use on arrival. Oral cavity: clear, Trachea midline. Breathing/Chest: Respiratory pattern: regular, Respiratory effort: spontaneous, unlabored, Chest inspection: symmetrical rise and fall of the chest. Circulation: Heart tones present. Pulses: palpable right radial artery and left radial artery. Skin color: pink, Skin temperature: warm, dry. Disability Alert. Exposure/Environment: All clothing and personal items were removed. Forensic evidence collection is not deemed to be indicated at this time. Items placed in patient belonging bag. There is no evidence of uncontrolled external bleeding. Obvious injury(ies) are noted at this time: abrasions and skin tears to the left arm and shoulder. A warming method has been applied: A warm blanket has been provided to the patient. 17:45 Reassessment Airway Airway Patent Oxygen No O2 Oral cavity Clear Trachea Midline sv Breathing/Chest Respiratory pattern Regular Respiratory effort Spontaneous Unlabored Chest inspection Symmetrical Circulation Heart tones Present Pulses Palpable Color [place] Temperature Warm Dry Disability Alert. Secondary Survey: 16:54 HEENT: Head Other hematoma noted to the left forehead. Gastrointestinal: No deficits sv noted. : No deficits noted. No signs and/or symptoms were reported regarding the genitourinary system. Musculoskeletal: No deficits noted. No signs and/or symptoms reported regarding the musculoskeletal system. Injury Description: Abrasion sustained to left frontal area, left side of forehead, anterior aspect of left shoulder, left elbow and left wrist Skin tears sustained to left arm. Assessment: 16:57 Reassessment: Kandi BONER MEAT at the bedside to assess pt and assist with removing the sv backboard. 19:07 Reassessment: Patient appears in no apparent distress at this time. Patient and/or sv family updated on plan of care and expected duration. Pain level reassessed. Patient is alert, oriented x 3, equal unlabored respirations, skin warm/dry/pink. Patient states symptoms have improved. Vital Signs: 17:07 BP 138 / 72; Pulse 76; Resp 16; Temp 98.9; Pulse Ox 95% ; sv 17:45 BP 127 / 64; Pulse 71; Resp 16; Temp 98.7; Pulse Ox 96% ; sv 18:30 BP 151 / 70; Pulse 65; Resp 16; Pulse Ox 98% on R/A; sv Van Coma Score: 16:54 Eye Response: spontaneous(4). Verbal Response: oriented(5). Motor Response: obeys sv commands(6). Total: 15. 17:45 Eye Response: spontaneous(4). Verbal Response: oriented(5). Motor Response: obeys sv commands(6). Total: 15. Trauma Score (Adult): 16:54 Eye Response: spontaneous(1); Verbal Response: oriented(1); Motor Response: obeys sv commands(2); Systolic BP: > 89 mm Hg(4); Respiratory Rate: 10 to 29 per min(4); Nehemiah Score: 15; Trauma Score: 12 17:45 Eye Response: spontaneous(1); Verbal Response: oriented(1); Motor Response: obeys sv commands(2); Systolic BP: > 89 mm Hg(4); Respiratory Rate: 10 to 29 per min(4); Van Score: 15; Trauma Score: 12 ED Course: 16:54 Patient maintains SpO2 saturation greater than 95% on room air. sv 17:03 Patient arrived in ED. sv 17:03 Shawanda Valle, NEFTALI is Primary Nurse. sv 17:04 Kandi Andujar FNP-C is PHCP. snw 17:04 Da Peña MD is Attending Physician. snw 17:06 Triage completed. sv 17:07 Arm band placed on. sv 17:10 Thermoregulation: warm blanket given to patient. sv 17:27 CT Head C Spine In Process Unspecified. EDMS 18:24 Dressings: Kerlix X 2; left antecubital area Tegaderm. mh5 18:25 Patient has correct armband on for positive identification. Bed in low position. Call mh5 light in reach. Side rails up X2. Adult w/ patient. Pulse ox on. NIBP on. 19:07 No provider procedures requiring assistance completed. Patient did not have IV access sv during this emergency room visit. Administered Medications: 17:20 Drug: Tetanus-Diphtheria Toxoid Adult 0.5 ml {[employer]mersible: [employer]. Exp: sv 10/20/2021. Lot #: [id number]. } Route: IM; Site: left deltoid; 18:00 Follow up: Response: No adverse reaction sv 19:06 Drug: Augmentin 875 mg Route: PO; snw 19:07 Follow up: Response: Medication administered at discharge. sv 19:06 Drug: traMADol 50 mg Route: PO; snw 19:07 Follow up: Response: Medication administered at discharge. sv Intake: 16:54 PO: 0ml; Total: 0ml. sv 17:45 PO: 0ml; Total: 0ml. sv Output: 16:54 Urine: 0ml; Total: 0ml. sv 17:45 Urine: 0ml; Total: 0ml. sv Outcome: 18:22 Discharge ordered by . snw 19:07 Discharged to home via wheelchair, with family. sv 19:07 Condition: stable 19:07 Discharge instructions given to patient, family, Instructed on discharge instructions, follow up and referral plans. medication usage, Demonstrated understanding of instructions, follow-up care, medications, Prescriptions given X 2. 19:07 Patient left the ED. sv 19:40 Patient's length of stay in the Emergency Department was greater than 2 hours. sv Patient's length of stay was extended due to staffing issues within the emergency department. Signatures: Dispatcher [employer] Shawanda Campbell RN RN sv Therrien, Shelly, WATER TREATMENT SPECIALIST-C WATER TREATMENT SPECIALIST-Marlysw Haydee Gunter [facility]
[2020-02-25] MEDS ORDERED: AMOX TR/K CLAV 400MG CHEW TAB PO ONE (18:36)
[2020-02-25] MEDS ORDERED: TRAMADOL HCL 50 MG TAB ONE (18:37)
[2020-02-25] MEDS ORDERED: DERMABOND SKIN ADHESIVE TOP ONE (18:37)
[2020-02-25] MEDS ORDERED: AMOX/K CLAV 875 MG TAB ONE (19:09)
[2020-02-25 19:13] VITALS: TEMP 98.7
[2020-02-25 19:14] VITALS: BP 151/70; O2SAT 98
== END 2020-02-25 19:07 | disposition home or self-care (01) ==
LOC: ER 16:58
DX: S01.91XA Laceration without foreign body of unspecified part of head, initial encounter (principal); S40.212A Abrasion of left shoulder, initial encounter; S50.312A Abrasion of left elbow, initial encounter; J01.90 Acute sinusitis, unspecified; W01.10XA Fall on same level from slipping, tripping and stumbling with subsequent striking against unspecified object, initial encounter; Y93.89 Activity, other specified; Y92.512 Supermarket, store or market as the place of occurrence of the external cause; Z23 Encounter for immunization; I10 Essential (primary) hypertension
CPT/HCPCS: 70450; 72125; 90471; 90714; 99284

== ENCOUNTER 2020-11-21 21:55 | Emergency (ER) | payer OTHER ==
--- OUTSIDE RECORDS SUMMARY | 2020-11-21 21:59 | XMS REPORT | Continuity of Care Document ---
:1930 Author Organization [facility] t Address [address] [place] [address] Care Team Providers Name Role Phone Unavailable Unavailable Unavailable Payers Payer Name Policy Type Policy Number Effective Date Expiration Date S ource Problems This patient has no known problems. Allergies, Adverse Reactions, Alerts Allergy Allergy Status Severity Reaction(s) Onset Inactive Treating Comm ents Source Name Type Date Date Clinician No Known DA Active U [facility] All[facility]ie 01-22 [facility] 00:00: [address] Medications This patient has no known medications. Procedures This patient has no known procedures. Results Test Description Test Time Test Comments Results Result [facility] e Comments - XR WRIST 3+V RT 2019-12-04 Patient Name: 13:50:00 BRUCE PICKETT Unit No: [id number] EXAMS: CPT CODE: [id number] XR WRIST 3+V RT [id number] Reason: swelling - XR WRIST 3+V RT 12/04/2019 1:37 PM Indication: Swelling COMPARISON: None FINDINGS: Severe irregular chondrocalcinosis. Multiple intercarpal lucencies probably subchondral geodes rather than erosions. Severe thumb base DJD. I see no fracture nor dislocation. Impression: No acute disease, radiographically. at 1350 Reported and signed by: Vivek Amanda MD CC: Link Flores MD Technologist: Yamileth Enriquez CT Trscrpt Dt/ ([id number])MooE Orig Print D/T: S: 12/04/2019 ([id number]) [facility] NAME: BRUCE PICKETT [id number] PHYS: [email or web address].Alisha [place] [address] : 1930 AGE: 89 SEX: M LOC: NAHOMI PHONE #: [phone] EXAM DATE: 12/04/2019 STATUS: PRE ER FAX #: RAD NO: DC Dt: PAGE 1 Signed Report
[2020-11-21 22:18] LABS: Alkaline Phosphatase ND U/L (45-117)
[2020-11-21 22:19] LABS: Absolute Lymphocytes (CBC) 1.2 K/uL (0.7-4.9); Basophils % 0.9 % (0-1.3); Hematocrit 45.8 % (39.6-49.0); Lymphocytes % 18.1 % (15.3-44.8)
[2020-11-21 22:35] LABS: Potassium 3.8 mmol/L (3.5-5.1)
[2020-11-21 22:37] LABS: Protime INR 1.09
[2020-11-21 22:48] LABS: ALT/SGPT 26 U/L (12-78); AST/SGOT 27 U/L (15-37); Albumin 3.8 g/dL (3.4-5.0); Amylase 29 U/L (25-115); Bilirubin Direct 0.3 mg/dL (0-0.2); Bilirubin Total 1.2 mg/dL (0.2-1.0); CKMB Creatine Kinase MB 3.3 ng/mL (0.3-3.6); Creatine Phosphokinase 107 U/L (39-308); Lipase 98 U/L (73-393); Magnesium 2.2 mg/dL (1.8-2.4); Protein, Total 7.1 g/dL (6.4-8.2); Troponin (Emerg Dept Use Only) < 0.02 ng/mL (0.0-0.045)
[2020-11-22 00:55] LABS: Urine Blood 2+ (NEG); Urine Glucose NEGATIVE (NEG); Urine Protein 2+ (NEG); Urine Specific Gravity 1.025 (1.005-1.030)
[2020-11-22 02:40] LABS: Barbiturates NEGATIVE (NEGATIVE); Benzodiazepines NEGATIVE (NEGATIVE); Cocaine NEGATIVE (NEGATIVE); METHAMPHETAM NEGATIVE (NEGATIVE); Methadone NEGATIVE (NEGATIVE); Opiates NEGATIVE (NEGATIVE); Phencyclidine NEGATIVE (NEGATIVE); THC Cannibis NEGATIVE (NEGATIVE)
--- NOTE | 2020-11-22 05:07 | ER ---
Nurse's Notes [facility] Name: Payam Mack Age: 89 yrs Sex: Male : 1930 Arrival Date: 11/21/2020 Time: 21:56 Bed 4 Private MD: Diagnosis: Fall-Mechanical;Right Rib Fracture;Fracture of thoracic vertebrae;Fracture of Lumbar Vertebrae;Right Upper Extremity Skin Tear Presentation: 11/21 22:10 Acuity: KATE 2 dm5 22:10 Chief complaint: EMS states: patient slipped and fell down on the chair. hit his head rr5 and butt right upper skin tear and bruising noted. A7O x4 walks around using a walker. while en route he became drowsy and confused ECG shows RBBB. history of HTN but not taking any medication. BS 112mg/dl. has PEG tube but he is not using it for a long time. 22:10 Coronavirus screen: Client denies travel out of the [place] in the last 14 days. At this rr5 time, the client does not indicate any symptoms associated with coronavirus-19. Ebola Screen: Patient negative for fever greater than or equal to 101.5 degrees Fahrenheit, and additional compatible Ebola Virus Disease symptoms Patient denies exposure to infectious person. Patient denies travel to an Ebola-affected area in the 21 days before illness onset. Initial Sepsis Screen: Does the patient meet any 2 criteria? No. Patient's initial sepsis screen is negative. Does the patient have a suspected source of infection? No. Patient's initial sepsis screen is negative. Risk Assessment: Do you want to hurt yourself or someone else? Patient reports no desire to harm self or others. Onset of symptoms was November 21, 2020. 22:10 Method Of Arrival: EMS: [facility] rr5 Historical: - Allergies: 11/20 22:10 No Known Allergies; rr5 - PMHx: 22:10 CVA; Depression; Hypertension; Hypothyroidism; polymyalgia rheumatica; Prostate Cancer; rr5 - PSHx: 22:10 PEG insertion; rr5 - Immunization history:: Adult Immunizations unknown. - Social history:: Smoking status: unknown. Screenin/18 22:15 VAN Screening: Arm Drift: Patient shows no arm weakness. Visual Disturbance: No visual wh disturbance noted. Aphasia: No aphasia noted. Neglect: No neglect noted. 22:30 Fall Risk Fall in past 12 months (25 points). 23:03 Abuse screen: Denies threats or abuse. Denies injuries from another. Nutritional rr5 screening: No deficits noted. Tuberculosis screening: No symptoms or risk factors identified. Assessment: 22:15 General: Appears in no apparent distress. Behavior is calm, cooperative, appropriate wh for age. Pain: Complains of pain in right arm and back. Neuro: Level of Consciousness is awake, alert, obeys commands, Oriented to person, place, time, situation, Appropriate for age [employer] are equal bilaterally Moves all extremities. Speech is normal, Facial symmetry appears normal, Pupils are PERRLA. Cardiovascular: Capillary refill < 3 seconds. Respiratory: Airway is patent Respiratory effort is even, unlabored, Respiratory pattern is regular, symmetrical. GI: PEG tube in place, clamped. Site clean. : No signs and/or symptoms were reported regarding the genitourinary system. EENT: No signs and/or symptoms were reported regarding the EENT system. Derm: Skin is fragile, is thin, Wound noted Other: Skin tear on right arm. Musculoskeletal: Circulation, motion, and sensation intact. 11/22 00:00 Reassessment: Patient appears in no apparent distress at this time. No changes from previously documented assessment. Patient and/or family updated on plan of care and expected duration. Pain level reassessed. Patient is alert, oriented x 3, equal unlabored respirations, skin warm/dry/pink. 01:30 Reassessment: Patient appears in no apparent distress at this time. Patient and/or family updated on plan of care and expected duration. Pain level reassessed. Patient is alert, oriented x 3, equal unlabored respirations, skin warm/dry/pink. Updated on POC. 02:30 Reassessment: Patient appears in no apparent distress at this time. Patient and/or rr5 family updated on plan of care and expected duration. Pain level reassessed. Patient is alert, oriented x 3, equal unlabored respirations, skin warm/dry/pink. 03:30 Reassessment: Patient appears in no apparent distress at this time. Patient is alert, rr5 oriented x 3, equal unlabored respirations, skin warm/dry/pink. vital signs taken and recorded. 05:25 Reassessment: Patient appears in no apparent distress at this time. unsteady gait noted rr5 when tried to walk at bedside. ED provider informed, patient is for discharge transport arrange for the patient. Vital Signs: 11/21 22:10 BP 215 / 116; Pulse 85; Resp 16; Temp 97.6; Weight 60 kg; rr5 11/22 00:00 BP 165 / 106; Pulse 76; Resp 18; Pulse Ox 95% on R/A; 01:30 BP 170 / 106; Pulse 72; Resp 18; Pulse Ox 95% on R/A; 03:00 BP 161 / 109; Pulse 79; Resp 16; Pulse Ox 98% on R/A; 05:00 BP 146 / 81; Pulse 76; Resp 18; Pulse Ox 95% on R/A; NIH Stroke Scale Scores: 11/21 22:15 NIHSS Score: 0 ED Course: 21:56 Patient arrived in ED. mw2 21:57 Marcial Whitley MD is Attending Physician. 7 22:01 CT Stroke Brain w/o Contrast In Process Unspecified. EDMS 22:05 Stroke CXR 1 View In Process Unspecified. EDMS 22:10 Triage completed. dm5 22:15 Arm band placed on left wrist. rr5 22:15 Patient has correct armband on for positive identification. Placed in gown. Bed in low rr5 position. Call light in reach. Side rails up X2. monitoring manager on. Pulse ox on. NIBP on. 22:41 CT C Spine In Process Unspecified. EDMS 22:54 Humerus Right XRAY In Process Unspecified. EDMS 23:27 Yuridia Hernandez, RN is Primary Nurse. 11/22 02:29 CT Thoracic Spine Wo Cont In Process Unspecified. EDMS 02:29 CT Lumbar Spine Wo Con In Process Unspecified. EDMS 05:36 Dontrell Madrigal MD is Referral Physician. mh7 05:36 Matthew Fernandez MD is Referral Physician. [facility] 05:48 No provider procedures requiring assistance completed. IV discontinued, intact, bleeding controlled, No redness/swelling at site. Administered Medications: 05:45 Not Given (Other Intervention Used): Tetanus-Diphtheria Toxoid Adult 0.5 ml IM once rr5 Outcome: 05:06 Discharge ordered by . [facility] 05:48 Discharged to home via ambulance. 05:48 Condition: stable 05:48 Discharge instructions given to patient, Instructed on discharge instructions, follow up and referral plans. wound care, Demonstrated understanding of instructions, follow-up care, wound care, Pt taken by [facility] to home 05:49 Patient left the ED. NIH Stroke Scale - NIH Stroke Score Date: 11/21/2020 Time: 22:15 Total Score = 0 1a. Level of Consciousness (LOC) - 0(Alert) 1b. Level of Consciousness (LOC) (Year \T\ Age) - 0(Both) 1c. LOC Commands (Open \T\ Closes Eyes/Order Packer Or Packager) - 0(Both) 2. Best Gaze (Lateral Gaze Paresis) - 0(Normal) 3. Visual Field Loss - 0(No visual loss) 4. Facial Palsy - 0(Normal) 5a. Left Arm: Motor (10-second hold) - 0(No drift) 5b. Right Arm: Motor (10-second hold) - 0(No drift) 6a. Left Leg: Motor (5-second hold - always test supine) - 0(No drift) 6b. Right Leg: Motor (5-second hold - always test supine) - 0(No drift) 7. Limb Ataxia (finger/nose \T\ heel/duong - test with eyes open) - 0(Absent) 8. Sensory Loss (pinprick arms/legs/face) - 0(Normal) 9. Best Language: Aphasia (description/naming/reading) - 0(No aphasia) 10. Dysarthria (speech clarity - read or repeat words) - 0(Normal) 11. Extinction and Inattention (visual/tactile/auditory/spatial/personal) - 0(No abnormality) Initials: Signatures: Dispatcher [employer] Veronica Baron RN RN dm5 Yuridia Hernandez RN RN Rose Marie Short mw2 Enoc Sawyer RN RN rr5 Marcial Whitley MD MD 7 Corrections: (The following items were deleted from the chart) 03:02 03:00 BP 161 / 109; Pulse 79bpm; Resp 16bpm; Pulse Ox 98%; [facility] 03:02 01:30 BP 170 / 106; Pulse 72bpm; Resp 18bpm; Pulse Ox 95%; [facility]
--- NOTE | 2020-11-22 05:07 | EDPHYS ---
Physician Documentation [facility] Name: Payam Mack Age: 89 yrs Sex: Male : 1930 Arrival Date: 11/21/2020 Time: 21:56 Bed 4 Private MD: ED Physician Marcial Whitley HPI: 11/21 23:42 This 89 yrs old Male presents to ER via EMS with complaints of Fall Injury. mh7 23:42 Details of fall: The patient fell from an upright position, while walking. Onset: The mh7 symptoms/episode began/occurred just prior to arrival, today. 23:43 Associated injuries: The patient sustained injury to the head, contusion, right arm, mh7 abrasion, contusion. Severity of symptoms: At their worst the symptoms were moderate, earlier today, in the emergency department the symptoms have improved, moderately. Historical: - Allergies: 11/20 22:10 No Known Allergies; rr5 - PMHx: 22:10 CVA; Depression; Hypertension; Hypothyroidism; polymyalgia rheumatica; Prostate Cancer; rr5 - PSHx: 22:10 PEG insertion; rr5 - Immunization history:: Adult Immunizations unknown. - Social history:: Smoking status: unknown. ROS: 11/21 23:43 Constitutional: Negative for fever, chills, and weight loss, Eyes: Negative for injury, mh7 pain, redness, and discharge, ENT: Negative for injury, pain, and discharge, Cardiovascular: Negative for chest pain, palpitations, and edema, Respiratory: Negative for shortness of breath, cough, wheezing, and pleuritic chest pain, Abdomen/GI: Negative for abdominal pain, nausea, vomiting, diarrhea, and constipation, : Negative for injury, bleeding, discharge, and swelling, Neuro: Negative for headache, weakness, numbness, tingling, and seizure, Psych: Negative for depression, anxiety, suicide ideation, homicidal ideation, and hallucinations, Allergy/Immunology: Negative for hives, rash, and allergies, Endocrine: Negative for neck swelling, polydipsia, polyuria, polyphagia, and marked weight changes, Hematologic/Lymphatic: Negative for swollen nodes, abnormal bleeding, and unusual bruising. Exam: 23:53 Constitutional: This is a well developed, well nourished patient who is awake, alert, mh7 and in no acute distress. Head/Face: Normocephalic, atraumatic. Eyes: Pupils equal round and reactive to light, extra-ocular motions intact. Lids and lashes normal. Conjunctiva and sclera are non-icteric and not injected. Cornea within normal limits. Periorbital areas with no swelling, redness, or edema. ENT: Nares patent. No nasal discharge, no septal abnormalities noted. Tympanic membranes are normal and external auditory canals are clear. Oropharynx with no redness, swelling, or masses, exudates, or evidence of obstruction, uvula midline. Mucous membranes moist. Neck: Trachea midline, no thyromegaly or masses palpated, and no cervical lymphadenopathy. Supple, full range of motion without nuchal rigidity, or vertebral point tenderness. No Meningismus. Chest/axilla: Normal chest wall appearance and motion. Nontender with no deformity. No lesions are appreciated. Cardiovascular: Regular rate and rhythm with a normal S1 and S2. No gallops, murmurs, or rubs. Normal PMI, no JVD. No pulse deficits. Respiratory: Lungs have equal breath sounds bilaterally, clear to auscultation and percussion. No rales, rhonchi or wheezes noted. No increased work of breathing, no retractions or nasal flaring. Abdomen/GI: Soft, non-tender, with normal bowel sounds. No distension or tympany. No guarding or rebound. No evidence of tenderness throughout. 23:53 Back: No spinal tenderness. No costovertebral tenderness. Full range of motion. 23:53 Neuro: Awake and alert, GCS 15, oriented to person, place, time, and situation. Cranial nerves II-XII grossly intact. Motor strength 5/5 in all extremities. Sensory grossly intact. Cerebellar exam normal. Normal gait. Psych: Awake, alert, with orientation to person, place and time. Behavior, mood, and affect are within normal limits. 23:53 Abdomen/GI: PEG tube in place. 23:53 Musculoskeletal/extremity: Extremities: noted in the right upper arm: skin tear, no active bleeding, ROM: intact in all extremities, Circulation is intact in all extremities. Sensation intact. Compartment Syndrome exam of affected extremity: is normal. no numbness, no tingling, no sensation deficit, no palor, no weak pulses, Joints: All joints appear normal with full range of motion. Tendon exam: specific tendon testing normal through active and passive range of motion 23:53 Skin: injury, skin tear right upper arm. Vital Signs: 22:10 BP 215 / 116; Pulse 85; Resp 16; Temp 97.6; Weight 60 kg; rr5 11/22 00:00 BP 165 / 106; Pulse 76; Resp 18; Pulse Ox 95% on R/A; 01:30 BP 170 / 106; Pulse 72; Resp 18; Pulse Ox 95% on R/A; 03:00 BP 161 / 109; Pulse 79; Resp 16; Pulse Ox 98% on R/A; 05:00 BP 146 / 81; Pulse 76; Resp 18; Pulse Ox 95% on R/A; NIH Stroke Scale Scores: 11/21 22:15 NIHSS Score: 0 MDM: 11/22 05:03 Differential diagnosis: abrasion, closed head injury, contusion, fracture. Data [facility] reviewed: vital signs, nurses notes, EMS record, old medical records, lab test result(s), cardiac enzymes, CBC, electrolytes, EKG, radiologic studies, CT scan, plain films. Data interpreted: Pulse oximetry: on room air is 98 %. Interpretation: normal. Counseling: I had a detailed discussion with the patient and/or guardian regarding: the historical points, exam findings, and any diagnostic results supporting the discharge/admit diagnosis, the presence of at least one elevated blood pressure reading (>120/80) during this emergency department visit, lab results, radiology results. 05:04 Response to treatment: the patient's symptoms have markedly improved after treatment. [facility] Refusal of service: The patient/guardian displays adequate decision making capability and despite a detailed discussion of alternatives, benefits, risks, and consequences refuses: Admission to the hospital for further work-up and treatment. 05:06 Patient medically screened. [facility] 05:40 ED course: Awake, Alert, and Oriented x 3, NAD, VSS, no focal neurological deficits. [facility] Discussed test results and findings and possibility of admission or transfer. Patient declined admission of transfer and adamantly requested to be discharged from the ED. Explained risk of possible worsening of condition and disability. Patient verbalized the information as presented to him. He will follow up with his doctor. But will return to the ER if worsening of symptoms.. 11/21 21:57 Order name: Basic Metabolic Panel mw2 03/18 21:57 Order name: CBC with Diff; Complete Time: 22:57 [facility] 11/21 21:57 Order name: Protime (+inr); Complete Time: 22:57 [facility] 11/21 21:57 Order name: Ptt, Activated; Complete Time: 22:57 [facility] 11/21 21:57 Order name: Basic Metabolic Panel; Complete Time: 22:57 EDMS 11/21 21:59 Order name: UDS [facility] 11/21 21:59 Order name: Amylase, Serum [facility] 11/21 21:59 Order name: Ckmb [facility] 11/21 22:00 Order name: CPK; Complete Time: 22:57 [facility] 11/21 22:00 Order name: Hepatic Function; Complete Time: 22:57 [facility] 11/21 22:00 Order name: Lipase; Complete Time: 22:57 [facility] 11/21 22:00 Order name: Magnesium; Complete Time: 22:57 [facility] 11/21 22:00 Order name: Troponin (emerg Dept Use Only); Complete Time: 22:57 [facility] 11/21 22:00 Order name: Urine Drug Screen [facility] 11/21 21:57 Order name: CT Stroke Brain w/o Contrast [facility] 11/21 21:57 Order name: Stroke CXR 1 View [facility] 11/21 21:57 Order name: EKG; Complete Time: 21:57 [facility] 11/21 21:57 Order name: Accucheck; Complete Time: 22:31 [facility] 11/21 21:57 Order name: Cardiac monitoring; Complete Time: 22:31 [facility] 11/21 21:57 Order name: EKG - Nurse/Tech; Complete Time: 22:32 [facility] 11/21 21:57 Order name: IV Saline Lock; Complete Time: 22:32 [facility] 11/21 22:00 Order name: Amylase; Complete Time: 22:57 EDMS 11/21 22:00 Order name: CKMB Creatine Kinase MB; Complete Time: 22:57 EDUT 11/21 22:06 Order name: CT C Spine [facility] 11/21 22:06 Order name: Humerus Right XRAY [facility] 11/21 22:18 Order name: Glucose, Ancillary Testing; Complete Time: 22:57 EDUT 11/22 00:50 Order name: Urine Dipstick--Ancillary (enter results); Complete Time: 01:04 2 11/22 01:03 Order name: CT Thoracic Spine Wo Cont 7 11/22 01:03 Order name: CT Lumbar Spine Wo Con 7 11/21 21:57 Order name: Labs collected and sent; Complete Time: 22:32 mw2 11/21 21:57 Order name: NPO; Complete Time: 22:32 mw2 11/21 21:57 Order name: O2 Per Protocol; Complete Time: 22:32 mw2 11/21 21:57 Order name: O2 Sat Monitoring; Complete Time: 22:32 mw2 11/21 21:57 Order name: Stroke Swallow Screen; Complete Time: 23:27 mw2 11/21 22:06 Order name: Urine Dipstick-Ancillary (obtain specimen); Complete Time: 00:48 7 Administered Medications: 05:45 Not Given (Other Intervention Used): Tetanus-Diphtheria Toxoid Adult 0.5 ml IM once rr5 Disposition: 11/22/20 05:06 Discharged to Home. Impression: Fall-Mechanical, Right Rib Fracture, Fracture of thoracic vertebrae, Fracture of Lumbar Vertebrae, Right Upper Extremity Skin Tear. - Condition is Stable. - Discharge Instructions: Spinal Compression Fracture, Skin Tear Care, Zhgw-oh-Tcps, Fall Prevention in the Home, [id number]-gy-[id number], Vertebral Fracture, Esiq-ff-Xezv, Rib Fracture, [id number]-aj-Jyuh. - Medication Reconciliation Form, Thank You Letter, Antibiotic Education, Prescription Opioid Use form. - Follow up: Private Physician; When: 1 - 2 days; Reason: Worsening of condition, Recheck today's complaints, Continuance of care, Re-evaluation by your physician. Follow up: Dontrell Madrigal MD; When: 1 - 2 days; Reason: Worsening of condition, Recheck today's complaints. Follow up: Matthew Fernandez MD; When: 1 - 2 days; Reason: Worsening of condition, Recheck today's complaints. - Problem is new. - Symptoms have improved. NIH Stroke Scale - NIH Stroke Score Date: 11/21/2020 Time: 22:15 Total Score = 0 1a. Level of Consciousness (LOC) - 0(Alert) 1b. Level of Consciousness (LOC) (Year \T\ Age) - 0(Both) 1c. LOC Commands (Open \T\ Closes Eyes/Neon Tube Bender) - 0(Both) 2. Best Gaze (Lateral Gaze Paresis) - 0(Normal) 3. Visual Field Loss - 0(No visual loss) 4. Facial Palsy - 0(Normal) 5a. Left Arm: Motor (10-second hold) - 0(No drift) 5b. Right Arm: Motor (10-second hold) - 0(No drift) 6a. Left Leg: Motor (5-second hold - always test supine) - 0(No drift) 6b. Right Leg: Motor (5-second hold - always test supine) - 0(No drift) 7. Limb Ataxia (finger/nose \T\ heel/duong - test with eyes open) - 0(Absent) 8. Sensory Loss (pinprick arms/legs/face) - 0(Normal) 9. Best Language: Aphasia (description/naming/reading) - 0(No aphasia) 10. Dysarthria (speech clarity - read or repeat words) - 0(Normal) 11. Extinction and Inattention (visual/tactile/auditory/spatial/personal) - 0(No abnormality) Initials: Signatures: Dispatcher [employer] EDMS Yuridia Hernandez RN RN Rose Marie Short mw2 Enoc Sawyer RN RN rr5 Marcial Whitley MD MD 7 Corrections: (The following items were deleted from the chart) 05:10 05:06 11/22/2020 05:06 Discharged to Home. Impression: Fall-Mechanical. 7 Condition is Stable. Forms are Medication Reconciliation Form, Thank You Letter, Antibiotic Education, Prescription Opioid Use. Follow up: Private Physician; When: 1 - 2 days; Reason: Worsening of condition, Recheck today's complaints, Continuance of care, Re-evaluation by your physician. Problem is new. Symptoms have improved. 7 05:34 05:10 11/22/2020 05:06 Discharged to Home. Impression: Fall-Mechanical; Right mh7 Rib Fracture. Condition is Stable. Forms are Medication Reconciliation Form, Thank You Letter, Antibiotic Education, Prescription Opioid Use. Follow up: Private Physician; When: 1 - 2 days; Reason: Worsening of condition, Recheck today's complaints, Continuance of care, Re-evaluation by your physician. Problem is new. Symptoms have improved. 7 05:37 05:34 11/22/2020 05:06 Discharged to Home. Impression: Fall-Mechanical; Right mh7 Rib Fracture; Fracture of thoracic vertebrae; Fracture of Lumbar Vertebrae. Condition is Stable. Forms are Medication Reconciliation Form, Thank You Letter, Antibiotic Education, Prescription Opioid Use. Follow up: Private Physician; When: 1 - 2 days; Reason: Worsening of condition, Recheck today's complaints, Continuance of care, Re-evaluation by your physician. Problem is new. Symptoms have improved. [facility] 05:39 05:37 11/22/2020 05:06 Discharged to Home. Impression: Fall-Mechanical; Right mh7 Rib Fracture; Fracture of thoracic vertebrae; Fracture of Lumbar Vertebrae; Right Arm Contusion. Condition is Stable. Discharge Instructions: Spinal Compression Fracture, Fall Prevention in the Home, [id number], Vertebral Fracture, Yvyi-qi-Lcba. Forms are Medication Reconciliation Form, Thank You Letter, Antibiotic Education, Prescription Opioid Use. Follow up: Private Physician; When: 1 - 2 days; Reason: Worsening of condition, Recheck today's complaints, Continuance of care, Re-evaluation by your physician. Follow up: Dontrell Madrigal; When: 1 - 2 days; Reason: Worsening of condition, Recheck today's complaints. Follow up: Matthew Fernandez; When: 1 - 2 days; Reason: Worsening of condition, Recheck today's complaints. Problem is new. Symptoms have improved. [facility] 05:49 05:39 11/22/2020 05:06 Discharged to Home. Impression: Fall-Mechanical; Right wh Rib Fracture; Fracture of thoracic vertebrae; Fracture of Lumbar Vertebrae; Right Upper Extremity Skin Tear. Condition is Stable. Discharge Instructions: Spinal Compression Fracture, Fall Prevention in the Home, Sqem-ja-Bebn, Vertebral Fracture, Stbz-uw-Ajoc, Skin Tear Care, Hudf-nc-Gjmy, Rib Fracture, Mbkd-th-Vire. Forms are Medication Reconciliation Form, Thank You Letter, Antibiotic Education, Prescription Opioid Use. Follow up: Private Physician; When: 1 - 2 days; Reason: Worsening of condition, Recheck today's complaints, Continuance of care, Re-evaluation by your physician. Follow up: Dontrell Madrigal; When: 1 - 2 days; Reason: Worsening of condition, Recheck today's complaints. Follow up: Matthew Fernandez; When: 1 - 2 days; Reason: Worsening of condition, Recheck today's complaints. Problem is new. Symptoms have improved. mh7
[2020-11-22 05:53] VITALS: TEMP 97.6
[2020-11-22 05:59] VITALS: BP 146/81; O2SAT 95
--- NOTE | 2020-11-22 10:42 | RAD REPORT ---
EXAM DESCRIPTION: CT - Ct Stroke Brain Wo Cont - 11/22/2020 6:50 am CLINICAL HISTORY: 89 years, Male, CONFUSED COMPARISON: None.. FINDINGS: Multiple transaxial tomograms of the brain were obtained from the base of the skull to the vertex without contrast. 2-D multiplanar reformats and the coronal and sagittal plane were performed and reviewed. An individualized dose optimization technique, Automated Exposure Control, was utilized for the perfo rmed procedure. Brain parenchyma demonstrate prominence of the sulci and gyri are corresponding to cerebral and cereb ellar atrophy. There is minimal periventricular white matter changes of microvascular ischemia. There is no midline shift and/or mass effect. There is no evidence for acute hemorrhage. Lateral ventric les and cisterns displace normal appearance. No intra or extra axial fluid collections were seen. T he calvarium is intact with no evidence for fracture. The visualized portions of the paranasal sinuse s demonstrate complete opacification of the right maxillary sinus. The mastoid air cells and orbits d emonstrate to be clear. IMPRESSION: No evidence for acute hemorrhage or mass effect. Brain atrophy with minimal periventricular white matter changes of microvascular ischemia. Complete opacification of the right maxillary sinus suggesting sinusitis. Electronically signed by: Vito Cotton MD 11/21/2020 10:10 PM CDT Due to temporary technical issues with the PACS/Fluency reporting system, reports are being signed by the in house radiologists without review as a courtesy to insure prompt reporting. The interpreting radiologist is fully responsible for the content of the report.
--- NOTE | 2020-11-22 10:52 | RAD REPORT ---
EXAM DESCRIPTION: RAD - Chest Single View - 11/21/2020 10:05 pm COMPARISON: None. CLINICAL HISTORY: [facility] [place] FINDINGS: A single AP view of the chest demonstrates a normal cardiomediastinal silhouette. Aortic a therosclerosis is present. No pneumothorax or pleural effusion. No consolidation or pulmonary edema. Mildly displaced fracture of the posterior right sixth rib. IMPRESSION: 1. No acute cardiopulmonary process. 2. Posterior sixth right rib fracture. Electronically signed by: Denis Underwood MD 11/21/2020 11:56 PM CDT Due to temporary technical issues with the PACS/Fluency reporting system, reports are being signed by the in house radiologists without review as a courtesy to insure prompt reporting. The interpreting radiologist is fully responsible for the content of the report.
--- NOTE | 2020-11-22 11:29 | RAD REPORT ---
EXAM DESCRIPTION: CT - C Spine Wo Con - 11/22/2020 6:50 am CLINICAL HISTORY: 89 years, Male, trauma COMPARISON: None TECHNIQUE: Multiple axial CT images through the cervical spine were obtained at 2 mm slice thickness at 2 mm interval reconstruction. In addition 2-D multiplanar reformats and the sagittal coronal plan e were performed and reviewed. An individualized dose optimization technique, Automated Exposure Control, was utilized for the perfo rmed procedure. FINDINGS: The alignment, vertebral body heights. The are normal. There is no evidence of fracture or subluxation. There is degenerative disc disease at anterior arch of C1 and dens with minimal trans verse ligament calcification. There is also noted the presence of degenerative disc disease with decr eased intervertebral disc height, anterior spondylosis and posterior osteophyte complex at C3/C4 mini amy at C4/C5 C5/C6 C6/C7 C7/T1. The spinal canal demonstrate no evidence for significant stenosis. There is minimal anterolisthesis of C5 over C6. There is uncovertebral degenerative changes C3-T1. Th ere is no prevertebral soft tissue swelling. Sagittal coronal reformatted images demonstrate no sub luxation or bony abnormalities. IMPRESSION: Multilevel degenerative disc disease as described above. No evidence of significant spinal canal stenosis. No evidence of fracture or subluxation. Electronically signed by: Vito Cotton MD 11/21/2020 10:51 PM CDT Due to temporary technical issues with the PACS/Fluency reporting system, reports are being signed by the in house radiologists without review as a courtesy to insure prompt reporting. The interpreting radiologist is fully responsible for the content of the report.
--- NOTE | 2020-11-22 11:33 | RAD REPORT ---
EXAM DESCRIPTION: RAD - Humerus Right - 11/21/2020 10:55 pm CLINICAL HISTORY: 89 years Male trauma Humerus Right TECHNIQUE: 2 x-ray views of the right humerus were performed on 11/21/2020 at 10:38 PM. COMPARISON: None FINDINGS: There is no evidence of fracture or dislocation. There is narrowing of the subacromial spa ce consistent with underlying rotator cuff pathology. There are degenerative changes of the acromiocl avicular joint which is intact. No focal lytic or sclerotic bone lesions are seen. Bone mineralization is normal. No acute soft tissue abnormalities are identified. IMPRESSION: No evidence of acute osseous injury involving the right humerus. There are degenerative changes of the acromioclavicular joint and findings consistent with underlying rotator cuff pathology . Electronically signed by: Catherine Escoto DO 11/22/2020 12:23 AM CDT Due to temporary technical issues with the PACS/Fluency reporting system, reports are being signed by the in house radiologists without review as a courtesy to insure prompt reporting. The interpreting radiologist is fully responsible for the content of the report.
--- NOTE | 2020-11-22 11:55 | RAD REPORT ---
EXAM DESCRIPTION: CTSpine Lumbar Wo Con11/22/2020 6:46 am CLINICAL HISTORY: Trauma COMPARISON: None. TECHNIQUE: Contiguous axial images of lumbar spine were obtained utilizing 2 mm slice thickness at 2 mm. In addition multiplanar reformats in the sagittal and coronal plane were generated and reviewed An individualized dose optimization technique, Automated Exposure Control, was utilized for the perfo rmed procedure. FINDINGS: There is diffuse bony osteopenia. There is questionable small superior endplate compressio n deformity at L2. There is degenerative grade 1 spondylolisthesis of L4 over L5. There is posterior facet hypertrophy at L3/L4 L4/L5 and L5/S1. No retroperitoneal or paraspinal abnormality is seen. The re is atherosclerotic disease of the aorta. L1-2: Unremarkable L2-3: Unremarkable L3-4: Unremarkable L4-5: Findings suggest a spinal Canal narrowing due to spondylolisthesis. L5-S1: Unremarkable IMPRESSION: Very small superior endplate compression deformity at L2. Degenerative grade 1 spondylolisthesis of L4 over L5. Facet hypertrophy at L3-S1. Electronically signed by: Vito Cotton MD 11/22/2020 2:44 AM CDT Due to temporary technical issues with the PACS/Fluency reporting system, reports are being signed by the in house radiologists without review as a courtesy to insure prompt reporting. The interpreting radiologist is fully responsible for the content of the report.
--- NOTE | 2020-11-22 11:56 | RAD REPORT ---
EXAM DESCRIPTION: CTThoracic Spine W/o Cont11/22/2020 6:46 am CLINICAL HISTORY: 89 years, Male, trauma COMPARISON: None. TECHNIQUE: Multiple axial CT images through the thoracic spine were obtained at 2 mm slice thickness at 2 mm interval reconstruction. In addition 2-D multiplanar reformats and the sagittal coronal plan e were performed and reviewed. An individualized dose optimization technique, Automated Exposure Control, was utilized for the perfo rmed procedure. FINDINGS: There is diffuse bony osteopenia. There is questionable small superior plate compression d eformity at the T3 vertebral body. There is a small superior endplate compression deformity at T7 britni tebral body. There is no evidence for significant retropulsion. Otherwise the alignment and the rest of the vertebral body heights are normal. Minimal anterior spondylosis. The spinal canal demonstrate no evidence for significant stenosis. Neural foramina demonstrate to be unremarkable. There is athero sclerotic disease of the thoracic aorta. There is no prevertebral soft tissue swelling. Sagittal co lakia reformatted images demonstrate no subluxation or bony abnormalities. IMPRESSION: Diffuse bony osteopenia. Questionable small superior plate compression deformity at the T3 vertebral body. There is a small superior endplate compression deformity at T7 vertebral body. Atherosclerotic disease thoracic aorta. Electronically signed by: Vito Cotton MD 11/22/2020 2:39 AM CDT Due to temporary technical issues with the PACS/Fluency reporting system, reports are being signed by the in house radiologists without review as a courtesy to insure prompt reporting. The interpreting radiologist is fully responsible for the content of the report.
== END 2020-11-22 05:49 | disposition home or self-care (01) ==
LOC: ER 21:55
DX: S22.31XA Fracture of one rib, right side, initial encounter for closed fracture (principal); S22.039A Unspecified fracture of third thoracic vertebra, initial encounter for closed fracture; S22.069A Unspecified fracture of T7-T8 vertebra, initial encounter for closed fracture; S32.029A Unspecified fracture of second lumbar vertebra, initial encounter for closed fracture; W18.30XA Fall on same level, unspecified, initial encounter; Y93.01 Activity, walking, marching and hiking; Y92.9 Unspecified place or not applicable; I10 Essential (primary) hypertension; Z85.46 Personal history of malignant neoplasm of prostate
CPT/HCPCS: 36415; 70450; 71045; 72125; 72128; 72131; 80048; 80076; 80307; 81003; 82150; 82550; 82553; 82947; 83690; 83735; 84484; 85025; 85610; 85730; 93005; 99284

== ENCOUNTER 2020-12-09 19:39 | Inpatient (IN) | payer OTHER ==
--- OUTSIDE RECORDS SUMMARY | 2020-12-09 19:43 | XMS REPORT | Continuity of Care Document ---
:1930 Author Organization [facility] t Address [address] [place] [address] Care Team Providers Name Role Phone Asked, Pcp Primary Care Physician Unavailable Payers Payer Name Policy Type Policy Number Effective Date Expiration Date S ource Problems Condition Condition Condition Status Onset Resolution Last Treating Co mments Source Name Details Category Date Date Treatment Clinician Date Acute Acute Disease Active [place] calculous calculous 7-25 Meth paty cholecysti cholecysti 00:00: st tis tis 00 Acute Acute Disease Active [place] cholecysti cholecysti 5-05 Me thodi tis tis 00:00: st 00 Allergies, Adverse Reactions, Alerts Allergy Allergy Status Severity Reaction(s) Onset Inactive Treating Comm ents Source Name Type Date Date Clinician No Known DA Active [facility] -19 [facility] Social History Social Habit Start Date Stop Date Quantity Comments Source History of Current smoker [facility] thodist tobacco use Tobacco use and 2018-04-06 2018-04-06 Never used [facility] ethodist exposure 00:00:00 00:00:00 Alcohol intake 2018-04-06 2018-04-[address] [facility] thodist 00:00:00 00:00:00 non-drinker of alcohol (finding) Tobacco Comment 2018-01-08 2018-01-08 quit 15 years [place] [facility] 00:00:00 00:00:00 ago Sex Ass[birth year] At [birth year] Twan Olguin ethodist 00:00:00 00:00:00 Smoking Status Start Date Stop Date Source Former smoker 2018-04-06 00:00:00 2018-04-06 00:00:00 Twan Ross Medications Ordered Filled Start Stop Current Ordering [...] MG tablet 32 times a day. amLODIPine 2018 Yes 5mg QD Take 5 mg [place] (NORVASC) 5 8-03 by mouth Meth paty mg tablet 12:07: nightly. st 32 sertraline Yes 25mg QD Take 25 mg [place] (ZOLOFT) 25 8-03 by mouth Meth paty MG tablet 12:07: nightly. st 32 tamsulosin Yes .4mg QD Take 1 [place] (FLOMAX) 7-31 capsule Methodi 0.4 mg 00:00: (0.[address] capsule 00 total) by mouth daily. Procedures This patient has no known procedures. Plan of Care Planned Activity Planned Date Details Comments Source Future Scheduled 2020-04-06 INFLUENZA VACCINE Irvin balbuena Yarsani Test 00:00:00 [code = INFLUENZA VACCINE] Future Scheduled 1997 65+ PNEUMOCOCCAL Trent Yarsani Test 00:00:00 VACCINE (1 of 1 - PPSV23) [code = 65+ PNEUMOCOCCAL VACCINE (1 of 1 - PPSV23)] Future Scheduled 1982 SHINGLES VACCINES (#1) [place] [facility] Test 00:00:00 [code = SHINGLES VACCINES (#1)] Future Scheduled 1948 COVID-19 VACCINE (1) Magdalena ston Yarsani Test 00:00:00 [code = COVID-19 VACCINE (1)] Results Test Description Test Time Test Comments Results Result [facility] e Comments - XR WRIST 3+V RT 2019-12-04 Patient Name: 13:50:00 BRUCE PICKETT Unit No: [id number] EXAMS: CPT CODE: [id number] XR WRIST 3+V RT [address]50 Reason: swelling - XR WRIST 3+V RT 12/04/2019 1:37 PM Indication: Swelling COMPARISON: None FINDINGS: Severe irregular chondrocalcinosis. Multiple intercarpal lucencies probably subchondral geodes rather than erosions. Severe thumb base DJD. I see no fracture nor dislocation. Impression: No acute disease, radiographically. at 1350 Reported and signed by: Vivek Amanda MD CC: Link Flores MD Technologist: Yamileth CASTILLO Trscrpt Dt/ ([id number])t.PKE Orig Print D/T: S: 12/04/2019 ([id number]) [facility] NAME: BRUCE PICKETT [address] [facility] PHYS: PEPDA. [place] [address] : 1930 AGE: 89 SEX: M LOC: D.NER PHONE #: [phone] EXAM DATE: 12/04/2019 STATUS: PRE ER FAX #: RAD NO: DC Dt: PAGE 1 Signed Report
[2020-12-09 22:31] LABS: Absolute Lymphocytes (CBC) 1.4 K/uL (0.7-4.9); Bilirubin Direct 0.4 mg/dL (0-0.2); Bilirubin Total 1.2 mg/dL (0.2-1.0); Potassium 3.9 mmol/L (3.5-5.1); Protein, Total 7.1 g/dL (6.4-8.2)
[2020-12-09 22:52] LABS: Basophils % 2.8 % (0-1.3); Hematocrit 46.2 % (39.6-49.0); Lymphocytes % 25.1 % (15.3-44.8); MPV 8.4 fL (7.6-11.3); RBC Red Blood Cell Count 5.05 M/uL (4.33-5.43)
[2020-12-09] MEDS ORDERED: NA CHLORIDE 0.9% 1,000 ML ONE (23:30)
--- NOTE | 2020-12-10 00:04 | P.HP ---
Certification for Inpatient Patient admitted to: Inpatient With expected LOS: >2 Midnights Patient will require the following post-hospital care: Home Health Services Practitioner: I am a practitioner with admitting privileges, knowledge of patient current condition, hospital course, and medical plan of care. Services: Services provided to patient in accordance with Admission requirements found in Title 42 Section 412.3 of the Code of Federal Regulations Patient History Date of Service: 12/09/20 Reason for admission: anorexia, weakness, PEG tube dysfxn History of Present Illness: Mr. Mack is an 89 yo M with HTN, hypothyroidism, polymyalgia rheumatica, BPH, urinary incontinence, and depression here today for increased anorexia, dysphagia, weight loss and weakness since a fall on 11/21 and sustained 4 rib fractures. Since the fall, he has steadily declined. Before the fall he was able to walk with a cane, but now he has been bed bound. He started PT last week and the PT agrees that he has been getting worse. He has a PEG tube that was placed 2.5 years ago that was supposed to be replaced a year ago but was postponed due to COVID. The PEG tube is unusable, and he has been unable to eat and drink and talk due to increasing dysphagia. This has happened twice before over the last two years with the most recent time 2.5 years ago when the peg tube was placed. Denies fever, night sweats, chills, nausea, vomiting. He lives at home with his . Daughter is MPOA and she hopes to speak to social work to establish more regular home health. Allergies No Known Allergies Allergy (Verified 11/17/16 09:56) Home Medications: Amlodipine [Norvasc*] 5 mg PO DAILY 05/08/15 Hydrocodone Bit/Acetaminophen [Hydrocodon-Acetaminophn 10-325] 1 each PO Q6HP PRN 05/08/15 Sertraline [Zoloft*] 25 mg PO DAILY 05/08/15 methylPREDNISolone [Medrol*] 4 mg PO BID 05/08/15 - Past Medical/Surgical History Diabetic: No -: Hypertension -: Prostate Cancer -: polymyalgia rheumatica -: BPH -: hypothyroidism -: depression -: Back Surgery -: cholecystectomy -: PEG tube placement Psychosocial/ Personal History: lives at home with . has an ex daughter in law that checks in on them. - Social History Smoking Status: Never smoker Alcohol use: No CD- Drugs: No Caffeine use: Yes Place of Residence: Home Review of Systems General: Weakness, As per HPI Eyes: Eyelid Inflammation ENT: As per HPI Respiratory: Unremarkable Cardiovascular: Unremarkable Gastrointestinal: Unremarkable Genitourinary: Incontinence, As per HPI Musculoskeletal: Back Pain, As per HPI Integumentary: Unremarkable Neurological: Weakness, As per HPI Lymphatics: Unremarkable Physical Examination - Physical Exam General: Alert, In no apparent distress, Oriented x3, Cooperative, Cachectic, Other (patient is extremely cachetic) HEENT: Atraumatic, Normocephalic, PERRLA, Mucous membr. moist/pink, Other (crusting around eyelids), EOMI, Sclerae nonicteric Neck: 2+ carotid pulse no bruit, JVD not distended, No Thyromegaly, No LAD Respiratory: Normal air movement Cardiovascular: No edema, Normal pulses, Regular rate/rhythm, Normal S1 S2, No gallops, No rubs, No murmurs Capillary refill: <2 Seconds Gastrointestinal: Normal bowel sounds, Soft and benign, Non-distended, No ascites, No tenderness, No masses, No rebound, No guarding, Other (crusting around peg tube, peg tube blockage, no erythema or edema) Musculoskeletal: No clubbing, No swelling, No contractures, No erythema, No warmth, Tenderness, Other (tenderness on ribs) Integumentary: No rashes, No breakdown, No significant lesion, No tenderness/swelling, No warmth, No cyanosis, Erythema, Pressure ulcer, Other (stage 1 sacral pressure ulcer) Neurological: Normal tone, Sensation intact, Cranial nerves 3-12 intact, Normal affect (difficult for patient to speech. unable to turn without assistance. ), Abnormal gait, Abnormal speech, Abnormal strength Lymphatics: No axilla or inguinal lymphadenopathy - Studies Laboratory Data (last 24 hrs) 12/09/20 22:00: WBC 5.60, Hgb 15.6, Hct 46.2, Plt Count 168 12/09/20 22:00: Sodium 141, Potassium 3.9, BUN 23 H, Creatinine 1.04, Glucose 62 L, Total Bilirubin 1.2 H, AST 15, ALT 11 L, Alkaline Phosphatase 317 H, Lipase 94 Assessment & Plan - Problems (Diagnosis) (1) Polymyalgia rheumatica Current Visit: Yes Status: Chronic (2) Hypertension Current Visit: Yes Status: Chronic Qualifiers: Hypertension type: essential hypertension Qualified Code(s): I10 - Essential (primary) hypertension (3) Hypothyroidism Current Visit: Yes Status: Chronic Qualifiers: Hypothyroidism type: unspecified Qualified Code(s): E03.9 - Hypothyroidism, unspecified (4) Depression Current Visit: Yes Status: Chronic Qualifiers: Depression Type: unspecified Qualified Code(s): F32.9 - Major depressive disorder, single episode, unspecified (5) BPH (benign prostatic hyperplasia) Current Visit: Yes Status: Chronic Qualifiers: Lower urinary tract symptom presence: unspecified whether lower urinary tract symptoms present Qualified Code(s): N40.0 - Benign prostatic hyperplasia without lower urinary tract symptoms (6) PEG tube malfunction Current Visit: Yes Status: Acute (7) Anorexia Current Visit: Yes Status: Acute (8) Weakness Current Visit: Yes Status: Acute (9) Dysphagia Onset Date: 05/08/15 Current Visit: No Status: Acute Qualifiers: Dysphagia type: unspecified Qualified Code(s): R13.10 - Dysphagia, unspecified - Plan consult GI for evaluation of PEG tube consult dietitian for adjustment of PEG tube feeds consult speech therapy for swallow study consult PT and OT for deconditioning consult case management for assistance with rehabilitation needs consult wound care for pressure ulcer management patient will be NPO with maintenance fluids until further evaluation, will monitor BG levels continue methylprednisolone, levothryoxine, and sertraline. continue to monitor BP Discharge Plan: Home Plan to discharge in: 48 Hours - Advance Directives Does patient have a Living Will: No Does patient have a Durable POA for Healthcare: Yes - Code Status/Comfort Care Code Status Assessed: Yes (full code) Critical Care: No Time Spent Managing PTS Care (In Minutes): 70
--- NOTE | 2020-12-10 02:59 | ER ---
Nurse's Notes [facility] Name: Payam Mack Age: 89 yrs Sex: Male : 1930 Arrival Date: 12/09/2020 Time: 19:42 Bed 23 Private MD: Khoi Maddox E Diagnosis: Anorexia;Dehydration Presentation: 12/09 19:55 Chief complaint: Patient states: Lethargic, not eating, loosing weight since 11/21. Had ll1 a fall on 11/21, has been declining since. Sent in by Dr. Maddox for eval. Medical POA Lindsey Radford is present. Coronavirus screen: Client denies travel out of the [place] in the last 14 days. At this time, the client does not indicate any symptoms associated with coronavirus-19. Ebola Screen: Patient denies travel to an Ebola-affected area in the 21 days before illness onset. Initial Sepsis Screen: Does the patient meet any 2 criteria? No. Patient's initial sepsis screen is negative. Does the patient have a suspected source of infection? No. Patient's initial sepsis screen is negative. Risk Assessment: Do you want to hurt yourself or someone else? Patient reports no desire to harm self or others. Onset of symptoms was November 21, 2020. 19:55 Method Of Arrival: Wheelchair ll1 19:55 Acuity: KATE 3 ll1 Historical: - Allergies: 19:59 No Known Allergies; ll1 - PMHx: 19:59 Depression; Hypertension; Hypothyroidism; polymyalgia rheumatica; Prostate Cancer; ll1 - PSHx: 19:59 PEG insertion; ll1 - Immunization history:: Flu vaccine is not up to date. - Social history:: Smoking status: Patient/guardian denies using tobacco, the patient reports quitting approximately 50 years ago. Screenin:13 Abuse screen: Denies threats or abuse. Denies injuries from another. Nutritional mg2 screening: No deficits noted. Tuberculosis screening: No symptoms or risk factors identified. Fall Risk Fall in past 12 months (25 points). IV access (20 points). Primary Survey: 22:12 NO uncontrolled hemorrhage observed. Breathing/Chest: Respiratory pattern: regular, mg2 Respiratory effort: spontaneous, unlabored. Circulation: Skin color: pink. Disability Alert. Exposure/Environment: All clothing and personal items were removed. Forensic evidence collection is not deemed to be indicated at this time. Items placed in patient belonging bag. There is no evidence of uncontrolled external bleeding. No obvious injuries are noted at this time. Assessment: 22:10 General: Appears in no apparent distress. comfortable, Behavior is calm, cooperative. mg2 Pain: Denies pain. Neuro: Level of Consciousness is awake, alert, obeys commands, Oriented to person, place, time, situation. EENT:. EENT: Reports difficulty swallowing since 2 years. Cardiovascular: Capillary refill < 3 seconds Patient's skin is warm and dry. Respiratory: Airway is patent Respiratory effort is even, unlabored, Respiratory pattern is regular, symmetrical. GI: Reports loss of appetite. : No signs and/or symptoms were reported regarding the genitourinary system. Derm: Skin is fragile, is thin. Musculoskeletal: Capillary refill < 3 seconds, Parent/caregiver report the patient having loss of muscle mass/weight. 23:40 Reassessment: seen by LAWRENCE Lopez-hospitalist and advised admission. mg2 12/10 01:00 Reassessment: Patient appears in no apparent distress at this time. Patient and/or jb4 family updated on plan of care and expected duration. Pain level reassessed. Patient is alert, oriented x 3, equal unlabored respirations, skin warm/dry/pink. 02:00 Reassessment: Patient and/or family updated on plan of care and expected duration. Pain jb4 level reassessed. Pt is resting comfortably in bed with eyes closed, respirations are even and unlabored with no s/s of pain or distress noted. Vital Signs: 12/09 19:55 BP 129 / 63; Pulse 76; Resp 17; Temp 97.6; Pulse Ox 100% ; Weight 53.07 kg; Height 5 ll1 ft. 11 in. (180.34 cm); Pain 0/10; 22:13 BP 120 / 66; Pulse 71; Resp 18; Pulse Ox 100% on R/A; mg2 23:40 BP 138 / 88; Pulse 71; Resp 18; Pulse Ox 100% on R/A; mg2 12/10 01:18 BP 111 / 53; Pulse 70; Resp 18; Pulse Ox 99% on R/A; mg2 02:00 BP 114 / 65; Pulse 68; Resp 18; Pulse Ox 99% on R/A; jb4 03:27 BP 139 / 98; Pulse 71; Resp 18; Pulse Ox 97% on R/A; mg2 12/09 19:55 Body Mass Index 16.32 (53.07 kg, 180.34 cm) ll1 ED Course: 12/09 19:42 Patient arrived in ED. es 19:43 Khoi Maddox MD is Private Physician. es 19:58 Triage completed. ll1 20:00 Arm band placed on. ll1 21:47 Jaylan Tucker, NEFTALI is Primary Nurse. mg2 22:13 Patient has correct armband on for positive identification. mg2 22:13 No provider procedures requiring assistance completed. Inserted saline lock: 20 gauge mg2 in right forearm, using aseptic technique. Blood collected. 22:50 Wyatt Escamilla MD is Attending Physician. pkl 12/10 02:58 Candelario Richmond is Hospitalizing Provider. bb 03:28 Patient admitted, IV remains in place. mg2 07:06 Primary Nurse role handed off by Jaylan Tucker RN bd Administered Medications: 12/09 23:40 Drug: NS 0.9% 1000 ml Route: IV; Rate: 125 ml/hr; Site: right forearm; mg2 Outcome: 12/10 02:58 Decision to Hospitalize by Provider. bb 02:58 Patient left the ED. bb 03:28 Admitted to ER Hold. Please see [facility] for further documentation. mg2 03:28 Condition: stable 03:28 Instructed on the need for admit. 07:18 Patient left the ED. sv Signatures: Alisa Flores Stephanie, NEFTALI LINDSAY sv Wyatt Escamilla MD MD pkl Judie Alvarez Brenda, RN RN bb Dontrell Crum RN RN jb4 Jaylan Tucker, NEFTALI LINDSAY mg2 Sudhakar Sierra RN RN ll1
[2020-12-10] MEDS ORDERED: ONDANSETRON 4 MG/2 ML VIAL IV PRN (04:23)
[2020-12-10] MEDS ORDERED: ACETAMINOPHEN 500 MG TAB PO PRN (04:23)
[2020-12-10] MEDS: D5 0.45 NS 1,000 ML IV SCH ×3 (04:23→23:39)
[2020-12-10 04:26] VITALS: BMI 16.3
[2020-12-10] MEDS ORDERED: D5 0.45 NS 1,000 ML IV ONE (04:50)
[2020-12-10 05:17] LABS: Basophils % 1.4 % (0-1.3); Hematocrit 43.1 % (39.6-49.0); Lymphocytes % 27.5 % (15.3-44.8); RBC Red Blood Cell Count 4.72 M/uL (4.33-5.43)
[2020-12-10 05:46] LABS: Albumin 3.4 g/dL (3.4-5.0); Potassium 3.9 mmol/L (3.5-5.1)
--- NOTE | 2020-12-10 07:18 | EDPHYS ---
Physician Documentation [facility] Name: Payam Mack Age: 89 yrs Sex: Male : 1930 Arrival Date: 12/09/2020 Time: 19:42 Bed 23 Private MD: Khoi Maddox E ED Physician Wyatt Escamilla HPI: 12/10 02:57 This 89 yrs old Male presents to ER via Wheelchair with complaints of pkl Difficulty Swallowing, unable to eat, Fall Injury. 02:57 The patient presents with dysphagia, of solids, of liquids. Onset: The symptoms/episode pkl began/occurred 3 week(s) ago. Associated signs and symptoms: Pertinent positives: chest pain, multiple fractures both rib cages, S/P fall 11/21/20. Family said patient unable to eat. PEG tube not functioning. Historical: - Allergies: 12/09 19:59 No Known Allergies; ll1 - PMHx: 19:59 Depression; Hypertension; Hypothyroidism; polymyalgia rheumatica; Prostate Cancer; ll1 - PSHx: 19:59 PEG insertion; ll1 - Immunization history:: Flu vaccine is not up to date. - Social history:: Smoking status: Patient/guardian denies using tobacco, the patient reports quitting approximately 50 years ago. ROS: 12/10 02:57 Eyes: Negative for injury, pain, redness, and discharge, ENT: Negative for injury, pkl pain, and discharge, Neck: Negative for injury, pain, and swelling, Cardiovascular: Negative for chest pain, palpitations, and edema, Respiratory: Negative for shortness of breath, cough, wheezing, and pleuritic chest pain. Abdomen/GI: Positive for Non functioning PEG tube. Back: Negative for acute changes. : Negative for urinary symptoms. MS/extremity: Negative for acute changes. Skin: Negative for acute changes. Neuro: Positive for altered mental status. Exam: 02:57 Head/Face: Normocephalic, atraumatic. Eyes: Pupils equal round and reactive to light, pkl extra-ocular motions intact. Lids and lashes normal. Conjunctiva and sclera are non-icteric and not injected. Cornea within normal limits. Periorbital areas with no swelling, redness, or edema. ENT: Nares patent. No nasal discharge, no septal abnormalities noted. Tympanic membranes are normal and external auditory canals are clear. Oropharynx with no redness, swelling, or masses, exudates, or evidence of obstruction, uvula midline. Mucous membranes moist. Neck: Trachea midline, no thyromegaly or masses palpated, and no cervical lymphadenopathy. Supple, full range of motion without nuchal rigidity, or vertebral point tenderness. No Meningismus. Chest/axilla: Normal chest wall appearance and motion. Nontender with no deformity. No lesions are appreciated. Cardiovascular: Regular rate and rhythm with a normal S1 and S2. No gallops, murmurs, or rubs. Normal PMI, no JVD. No pulse deficits. Respiratory: Lungs have equal breath sounds bilaterally, clear to auscultation and percussion. No rales, rhonchi or wheezes noted. No increased work of breathing, no retractions or nasal flaring. Abdomen/GI: Soft, non-tender, with normal bowel sounds. No distension or tympany. No guarding or rebound. No evidence of tenderness throughout. Back: No spinal tenderness. No costovertebral tenderness. Full range of motion. Skin: Warm, dry with normal turgor. Normal color with no rashes, no lesions, and no evidence of cellulitis. MS/ Extremity: Pulses equal, no cyanosis. Neurovascular intact. Full, normal range of motion. 02:57 Neuro: Orientation: appropriate for stated age, Cranial nerves: grossly normal, Motor: moves all fours. Vital Signs: 12/09 19:55 BP 129 / 63; Pulse 76; Resp 17; Temp 97.6; Pulse Ox 100% ; Weight 53.07 kg; Height 5 ll1 ft. 11 in. (180.34 cm); Pain 0/10; 22:13 BP 120 / 66; Pulse 71; Resp 18; Pulse Ox 100% on R/A; mg2 23:40 BP 138 / 88; Pulse 71; Resp 18; Pulse Ox 100% on R/A; mg2 12/10 01:18 BP 111 / 53; Pulse 70; Resp 18; Pulse Ox 99% on R/A; mg2 02:00 BP 114 / 65; Pulse 68; Resp 18; Pulse Ox 99% on R/A; jb4 03:27 BP 139 / 98; Pulse 71; Resp 18; Pulse Ox 97% on R/A; mg2 12/09 19:55 Body Mass Index 16.32 (53.07 kg, 180.34 cm) ll1 MDM: 12/09 22:50 Patient medically screened. pkl 12/10 02:57 Data reviewed: vital signs, nurses notes, lab test result(s), EKG, radiologic studies, pkl CT scan, plain films. ED course: Talked to Emanuel BRAVO ) Admit to Dr. Richmond. 12/09 21:59 Order name: Basic Metabolic Panel mg2 12/09 21:59 Order name: CBC with Diff mg2 12/09 21:59 Order name: Hepatic Function mg2 12/09 21:59 Order name: Lipase mg2 12/09 22:05 Order name: Basic Metabolic Panel; Complete Time: 23:07 EDMS 12/09 22:05 Order name: Liver (Hepatic) Function; Complete Time: 23:07 EDMS 12/09 22:05 Order name: Lipase; Complete Time: 23:07 EDMS 12/09 22:05 Order name: CBC with Automated Diff; Complete Time: 23:07 EDMS 12/09 22:10 Order name: Glucose, Ancillary Testing; Complete Time: 23:07 EDMS 12/10 00:37 Order name: SARS-COV-2 RT PCR; Complete Time: 01:29 EDMS 12/10 05:25 Order name: Glucose, Ancillary Testing; Complete Time: 08:24 EDMS 12/10 05:33 Order name: CBC with Automated Diff; Complete Time: 08:24 EDMS 12/10 05:52 Order name: Comprehensive Metabolic Panel; Complete Time: 08:24 EDMS 12/09 21:59 Order name: IV Saline Lock; Complete Time: 21:59 mg2 12/09 21:59 Order name: Labs collected and sent; Complete Time: 21:59 mg2 12/09 23:09 Order name: CT Traumagram (Head C Spine CAP W Con) pkl 12/09 23:42 Order name: CONS Physician Consult EDMS Administered Medications: 12/09 23:40 Drug: NS 0.9% 1000 ml Route: IV; Rate: 125 ml/hr; Site: right forearm; mg2 Disposition: 12/10/20 02:58 Hospitalization ordered by Candelario Richmond for Inpatient Admission. Preliminary diagnosis are Anorexia, Dehydration. - Bed requested for Telemetry/MedSurg (Inpatient). - Status is Inpatient Admission. sv - Condition is Stable. Signatures: Dispatcher [employer] [facility] Shawanda Valle, RN RN sv Wyatt Escamilla MD MD pkl Ballard, Brenda, RN RN bb Poppy Zacarias RN RN cg Jaylan Tucker RN RN mg2 Sudhakar Sierra RN RN ll1 Corrections: (The following items were deleted from the chart) 23:37 22:59 CORONAVIRUS+MR.LAB.BRZ ordered. [facility] 12/10 06:11 02:58 Hospitalization Ordered by Candelario Richmond for Inpatient Admission. Preliminary cg diagnosis is Anorexia; Dehydration. Bed requested for [facility] ER HOLD. Status is Inpatient Admission. Condition is Stable. bb 07:18 06:11 12/10/2020 02:58 Hospitalization Ordered by Candelario Richmond for Inpatient Admission. Preliminary diagnosis is Anorexia; Dehydration. Bed requested for Telemetry/MedSurg (Inpatient). Status is Inpatient Admission. Condition is Stable. cg
[2020-12-10] MEDS: INSULIN -REGULAR HUMAN 50 UNIT/0.5 ML ML SQ SCH ×4 (07:30→20:38)
[2020-12-10] MEDS ORDERED: PNEUMOCOCCAL VACCINE 0.5 ML IMVAC ONE (08:00)
[2020-12-10] MEDS ORDERED: KCL 20 MEQ/100 mL IVPB 20 MEQ/100 ML BAG IV SCH (09:00)
--- NOTE | 2020-12-10 12:44 | RAD REPORT ---
EXAM DESCRIPTION: CT - Head C Spine Cap W Tej - 12/10/2020 6:35 am CLINICAL HISTORY: Fall TECHNIQUE: Contiguous axial CT images obtained through the brain without IV contrast. Coronal and sa gittal reformatted images were provided. This exam was performed according to our departmental dose-optimization program, which includes autom ated exposure control, adjustment of the mA and/or kV according to patient size and/or use of iterati ve reconstruction technique. COMPARISON: 11/21/2020 FINDINGS: Brain: Mild cerebral atrophy and mild bilateral periventricular and subcortical white joe er low-attenuation most compatible with chronic microvascular angiopathy without significant interval change. No focal mass effect. Isidro-white matter differentiation is within normal limits. No hemorrha ge. Ventricles: No ventriculomegaly or midline shift. Extra-axial spaces: No extra-axial collection or hemorrhage. Paranasal sinuses and mastoid air cells: Near-complete opacification of the right maxillary sinus. Vessels: There is atherosclerotic disease of the internal carotid arteries bilaterally. Bones: Unremarkable Soft tissues: Unremarkable EXAM DESCRIPTION: CT CERVICAL SPINE WITHOUT IV CONTRAST CLINICAL HISTORY: Fall TECHNIQUE: Contiguous axial CT images obtained through the cervical spine without IV contrast. Coron al and sagittal reformatted images also provided. This exam was performed according to our departmental dose-optimization program, which includes autom ated exposure control, adjustment of the mA and/or kV according to patient size and/or use of iterati ve reconstruction technique. COMPARISON: 11/21/2020 FINDINGS: Vertebra: Stable grade 1 anterolisthesis of C4 on C5 and C7 on T1. No acute fracture or paz bluxation. Disc spaces: Moderate to severe multilevel degenerative changes without significant interval change. No critical canal stenosis. Prevertebral soft tissues: Unremarkable EXAM DESCRIPTION: CT CHEST WITH IV CONTRAST CLINICAL HISTORY: Fall TECHNIQUE: Contiguous axial images obtained through the chest following the uneventful administratio n of IV contrast. Coronal and sagittal reformatted images provided. This exam was performed according to our departmental dose-optimization program, which includes autom ated exposure control, adjustment of the mA and/or kV according to patient size and/or use of iterati ve reconstruction technique. COMPARISON: T-spine CT dated 11/22/2020 FINDINGS: Lungs: Mild paraseptal emphysema. Mild bilateral lower lobe consolidation similar to the p rior study suggestive of subsegmental atelectasis/pleural parenchymal scar. Airways are patent. Pleura: No effusion. No pneumothorax. Heart and pericardium: The heart is normal in size. Coronary artery calcification. No pericardial eff usion. Mediastinum and diandra: No pathologically enlarged lymph nodes. The proximal to mid esophagus is patulo us. Lower neck and chest wall: Unremarkable Vessels: Mild to moderate atherosclerotic disease. No thoracic aortic aneurysm. Bones: Multilevel spondylosis. Acute appearing right anterior 4th through 6th and right posterior lat eral 6th rib fractures. Remote right anterior 7th and 8th and left anterior 6th, 7th and 9th rib frac tures. Remote T3 and T7 compression deformities. EXAM DESCRIPTION: CT ABDOMEN PELVIS WITH IV CONTRAST CLINICAL HISTORY: Fall TECHNIQUE: Contiguous axial images obtained through the abdomen and pelvis following the uneventful administration of IV contrast. Coronal and sagittal reformatted images were provided. This exam was performed according to our departmental dose-optimization program, which includes autom ated exposure control, adjustment of the mA and/or kV according to patient size and/or use of iterati ve reconstruction technique. COMPARISON: L spine CT dated 11/22/2020 FINDINGS: Liver: Hepatic parenchymal calcifications compatible with remote granulomatous organism ex posure. Gallbladder and biliary system: Prior cholecystectomy. Pancreas: Moderate pancreatic parenchymal atrophy. Spleen: Splenic parenchymal calcifications compatible with remote granulomatous organism exposure. Adrenals: Unremarkable Kidneys: Normal renal cortical enhancement. No calculi. No hydronephrosis. Bowel: Gastrostomy tube in place. Colonic diverticula without adjacent inflammatory change. No obstru ction. No appreciable mucosal thickening. Appendix: Normal caliber appendix. No findings to suggest acute appendicitis. Urinary bladder: Unremarkable Reproductive: The prostate is enlarged. Lymph nodes: No pathologically enlarged lymph nodes. Peritoneum: No focal fluid collection. No free air. Vessels: Moderate atherosclerotic disease. No abdominal aortic aneurysm. Abdominal wall: Unremarkable Bones: Multilevel spondylosis. Grade 1-2 anterolisthesis of L4 and L5 again demonstrated. Superior co mpression fracture at L2 again demonstrated with progressive loss of height, now approximately 30% (p reviously 5%). IMPRESSION: CT HEAD: 1. No acute intracranial or extra-axial abnormality. 2. Other findings as above. CT CERVICAL SPINE: No acute injury. CT CHEST: 1. Acute appearing right anterior 4th through 6th and right posterior lateral 6th rib fractures. 2. Other findings as above. CT ABDOMEN PELVIS: 1. No evidence for hollow or solid organ injury. 2. L2 compression fracture with progressive loss of height, now approximately 30%. 3. Other findings as above. Electronically signed by: Pretty Mandel MD 12/10/2020 1:04 AM CDT Due to temporary technical issues with the PACS/Fluency reporting system, reports are being signed by the in house radiologist without review as a courtesy to ensure prompt reporting. The interpreting r adiologist is fully responsible for the content of the report.
--- NOTE | 2020-12-10 15:42 | P.PN ---
Subjective Date of Service: 12/10/20 Chief Complaint: anorexia, weakness, PEG tube dysfxn No major changes from yesterday. Patient is awake and alert. He has no complain. He stood up with physical therapy today. Physical Examination - Vital Signs Temperature: 96 F Blood Pressure: 150/77 Pulse: 53 Respirations: 20 Pulse Ox (%): 96 - Physical Exam General: In no apparent distress HEENT: Mucous membr. moist/pink Neck: Supple Respiratory: Clear to auscultation bilaterally, Normal air movement Cardiovascular: No edema, Regular rate/rhythm, Normal S1 S2 Gastrointestinal: Soft and benign, Non-distended, No tenderness Musculoskeletal: No swelling Integumentary: Other (Ulcer noted around his PEG tube.) Neurological: Other (No focal motor deficits) - Studies Laboratory Data (last 24 hrs) 12/09/20 22:00: WBC 5.60, Hgb 15.6, Hct 46.2, Plt Count 168 12/09/20 22:00: Sodium 141, Potassium 3.9, BUN 23 H, Creatinine 1.04, Glucose 62 L, Total Bilirubin 1.2 H, AST 15, ALT 11 L, Alkaline Phosphatase 317 H, Lipase 94 12/09/20 21:59: WBC Cancelled, Hgb Cancelled, Hct Cancelled, Plt Count Cancelled 12/09/20 21:59: Sodium Cancelled, Potassium Cancelled, BUN Cancelled, Creatinine Cancelled, Glucose Cancelled, Total Bilirubin Cancelled, AST Cancelled, ALT Cancelled, Alkaline Phosphatase Cancelled, Lipase Cancelled Assessment And Plan - Current Problems (Diagnosis) (1) Functional quadriplegia Current Visit: Yes Status: Acute (2) PEG tube malfunction Current Visit: Yes Status: Acute (3) Hypothyroidism Current Visit: Yes Status: Chronic Qualifiers: Hypothyroidism type: unspecified Qualified Code(s): E03.9 - Hypothyroidism, unspecified (4) Polymyalgia rheumatica Current Visit: Yes Status: Chronic (5) Dysphagia Onset Date: 05/08/15 Current Visit: No Status: Acute Qualifiers: Dysphagia type: unspecified Qualified Code(s): R13.10 - Dysphagia, unspecified - Plan Patient to be seen by GI for PEG tube change. He tolerated physical therapy. Rehab recommended. Family looking at skilled rehab and later transition to long-term care. Currently NPO. Noted patient had transient hypoglycemia. IV hydrate with D5 half-normal saline. Monitor blood chemistry and fingerstick glucose. Continue PT.
--- NOTE | 2020-12-10 18:02 | RAD REPORT ---
EXAM DESCRIPTION: RAD - ENTEROSTOMY TUBE CHECK W/CONTR - 12/10/2020 5:53 pm CLINICAL HISTORY: check for new peg tube placement Abdominal pain COMPARISON: Abdomen Pelvis Wo Contrast dated 01/07/2018 FINDINGS: Two plain radiographs of the abdomen are submitted. No fluoroscopy was performed. Contrast infusion after PEG tube placement demonstrates contrast within the stomach, indicating appropriate p lacement.
[2020-12-11 04:56] LABS: BUN Blood Urea Nitrogen 10 mg/dL (7-18); Bicarbonate 29 mmol/L (21-32); Glucose Level 124 mg/dL (74-106); Potassium 3.2 mmol/L (3.5-5.1); Sodium Level 139 mmol/L (136-145)
[2020-12-11 06:11] LABS: Magnesium 1.9 mg/dL (1.8-2.4); Phosphorus 1.7 mg/dL (2.5-4.9)
[2020-12-11] MEDS: INSULIN -REGULAR HUMAN 50 UNIT/0.5 ML ML SQ SCH ×3 (07:30→17:39)
[2020-12-11] MEDS ORDERED: KCL 20 MEQ/100 mL IVPB 20 MEQ/100 ML BAG IV ONE (07:30)
[2020-12-11] MEDS ORDERED: HYDRALAZINE HCL 20 MG/ML VIAL IV PRN (09:09)
[2020-12-11] MEDS ORDERED: POTASSIUM PHOS IN 0.9 % NACL 15 MMOL/250 ML BAG IV ONE (09:30)
[2020-12-11] MEDS: D5 0.45 NS 1,000 ML IV SCH (09:45)
[2020-12-11] MEDS ORDERED: INSULIN -REGULAR HUMAN 50 UNIT/0.5 ML ML SQ SCH (11:00)
--- NOTE | 2020-12-11 18:34 | P.PN ---
Subjective Date of Service: 12/11/20 Chief Complaint: anorexia, weakness, PEG tube dysfxn Patient has no complain. Peg tube placed yesterday. Feeding started this morning. Physical Examination - Vital Signs Temperature: 97.6 F Blood Pressure: 124/63 Pulse: 59 Respirations: 18 Pulse Ox (%): 97 - Physical Exam General: In no apparent distress, Other (Awake,) Neck: Supple Respiratory: Clear to auscultation bilaterally, Normal air movement Cardiovascular: No edema, Regular rate/rhythm, Normal S1 S2 Gastrointestinal: Normal bowel sounds, Soft and benign, Non-distended, No tenderness Musculoskeletal: No swelling Neurological: Other (No focal motor deficit.) Assessment And Plan - Current Problems (Diagnosis) (1) Functional quadriplegia Current Visit: Yes Status: Acute (2) PEG tube malfunction Current Visit: Yes Status: Acute (3) Hypothyroidism Current Visit: Yes Status: Chronic Qualifiers: Hypothyroidism type: unspecified Qualified Code(s): E03.9 - Hypothyroidism, unspecified (4) Polymyalgia rheumatica Current Visit: Yes Status: Chronic (5) Dysphagia Onset Date: 05/08/15 Current Visit: No Status: Acute Qualifiers: Dysphagia type: unspecified Qualified Code(s): R13.10 - Dysphagia, unspecified - Plan GI input appreciated. PEG tube is in and functional. Feeding started He tolerated physical therapy. Rehab recommended. Family looking at skilled rehab and later transition to long-term care. Discontinue IV fluid Monitor blood chemistry and fingerstick glucose. Continue PT.
[2020-12-11] MEDS: methylPREDNISolone 4 MG TAB PO SCH (21:15)
[2020-12-12 05:15] LABS: BUN Blood Urea Nitrogen 8 mg/dL (7-18); Bicarbonate 29 mmol/L (21-32); Glucose Level 138 mg/dL (74-106); Magnesium 1.8 mg/dL (1.8-2.4); Phosphorus 2.3 mg/dL (2.5-4.9); Potassium 4.1 mmol/L (3.5-5.1); Sodium Level 138 mmol/L (136-145)
[2020-12-12] MEDS ORDERED: MAGNESIUM SULFATE 1 gm IVPB 1 GM/100 ML BAG IV ONE (05:44)
[2020-12-12] MEDS: INSULIN -REGULAR HUMAN 50 UNIT/0.5 ML ML SQ SCH ×4 (06:00→18:00)
[2020-12-12] MEDS: POTASS/SODIUM PHOSPHATE 1 PKT POWD.PACK PO SCH ×3 (06:25→09:15)
[2020-12-12] MEDS: methylPREDNISolone 4 MG TAB PO SCH ×2 (07:20→20:48)
[2020-12-12] MEDS: SERTRALINE HCL 50 MG TAB PO SCH (07:22)
[2020-12-12] MEDS: LEVOTHYROXINE SOD 0.075 MG TAB PO SCH (07:22)
[2020-12-12] MEDS ORDERED: AMLODIPINE 5 MG TAB PO SCH (09:00)
--- NOTE | 2020-12-12 09:31 | P.PN ---
Subjective Date of Service: 12/12/20 Chief Complaint: anorexia, weakness, PEG tube dysfxn Subjective: No new changes (tolerating peg tube well) Physical Examination - Vital Signs Temperature: 96.6 F Blood Pressure: 102/61 Pulse: 60 Respirations: 16 Pulse Ox (%): 98 - Physical Exam General: Alert, In no apparent distress, Oriented x3 HEENT: Atraumatic, Normocephalic, PERRLA Neck: Supple, 2+ carotid pulse no bruit Respiratory: Clear to auscultation bilaterally, Normal air movement Cardiovascular: Normal pulses, Regular rate/rhythm, Normal S1 S2 Gastrointestinal: Soft and benign, No rebound, No guarding, Other (+peg tube placement ) Musculoskeletal: No clubbing, No swelling Integumentary: No rashes, No breakdown, No significant lesion Neurological: Normal speech, Normal strength at 5/5 x4 extr, Normal tone External genitalia: No edema, No lesions Assessment And Plan - Current Problems (Diagnosis) (1) Anorexia Current Visit: Yes Status: Acute (2) Functional quadriplegia Current Visit: Yes Status: Acute (3) PEG tube malfunction Current Visit: Yes Status: Acute (4) Weakness Current Visit: Yes Status: Acute (5) BPH (benign prostatic hyperplasia) Current Visit: Yes Status: Chronic Qualifiers: Lower urinary tract symptom presence: unspecified whether lower urinary tract symptoms present Qualified Code(s): N40.0 - Benign prostatic hyperplasia without lower urinary tract symptoms (6) Depression Current Visit: Yes Status: Chronic Qualifiers: Depression Type: unspecified Qualified Code(s): F32.9 - Major depressive disorder, single episode, unspecified (7) Hypertension Current Visit: Yes Status: Chronic Qualifiers: Hypertension type: essential hypertension Qualified Code(s): I10 - Essential (primary) hypertension (8) Hypothyroidism Current Visit: Yes Status: Chronic Qualifiers: Hypothyroidism type: unspecified Qualified Code(s): E03.9 - Hypothyroidism, unspecified (9) Polymyalgia rheumatica Current Visit: Yes Status: Chronic (10) Dysphagia Onset Date: 05/08/15 Current Visit: No Status: Acute Qualifiers: Dysphagia type: unspecified Qualified Code(s): R13.10 - Dysphagia, unspecified Physician Review Additional Text: Plan Blood pressure borderline low, we Dc amlodipine Continue IV hydralazine p.r.n. Continue PEG tube feeding Follow plan for discharge now Case management to arrange for transfer to SNF . PEG tube is in and functional. continue physical therapy. Rehab recommended. Family looking at skilled rehab and later transition to long-term care. Time Spent Managing PTS Care (In Minutes): 30
[2020-12-13] MEDS: INSULIN -REGULAR HUMAN 50 UNIT/0.5 ML ML SQ SCH ×4 (05:44→17:32)
[2020-12-13 06:36] LABS: BUN Blood Urea Nitrogen 14 mg/dL (7-18); Bicarbonate 28 mmol/L (21-32); Glucose Level 128 mg/dL (74-106); Magnesium 2.1 mg/dL (1.8-2.4); Phosphorus 3.4 mg/dL (2.5-4.9); Sodium Level 138 mmol/L (136-145)
[2020-12-13] MEDS: SERTRALINE HCL 50 MG TAB PO SCH (08:08)
[2020-12-13] MEDS: LEVOTHYROXINE SOD 0.075 MG TAB PO SCH (08:08)
[2020-12-13] MEDS: methylPREDNISolone 4 MG TAB PO SCH ×2 (09:00→20:18)
--- NOTE | 2020-12-13 17:39 | P.PN ---
Subjective Date of Service: 12/13/20 Chief Complaint: anorexia, weakness, PEG tube dysfxn Patient has no new complain. Status post PEG tube. Patient is tolerating feeding. He was seen up in a chair this morning. Physical Examination - Vital Signs Temperature: 97 F Blood Pressure: 109/56 Pulse: 60 Respirations: 18 Pulse Ox (%): 97 - Physical Exam General: In no apparent distress, Other (Awake) Neck: Supple, JVD not distended Respiratory: Clear to auscultation bilaterally, Normal air movement Cardiovascular: No edema, Normal S1 S2, Irregular heart rate/rhythm Gastrointestinal: Soft and benign, Non-distended, Other (PEG tube.) Musculoskeletal: No swelling Neurological: Normal affect (No focal motor deficit.) Assessment And Plan - Current Problems (Diagnosis) (1) Functional quadriplegia Current Visit: Yes Status: Acute (2) PEG tube malfunction Current Visit: Yes Status: Acute (3) Hypothyroidism Current Visit: Yes Status: Chronic Qualifiers: Hypothyroidism type: unspecified Qualified Code(s): E03.9 - Hypothyroidism, unspecified (4) Polymyalgia rheumatica Current Visit: Yes Status: Chronic (5) Dysphagia Onset Date: 05/08/15 Current Visit: No Status: Acute Qualifiers: Dysphagia type: unspecified Qualified Code(s): R13.10 - Dysphagia, unspecified - Plan Continue PEG tube feeding. He is also tolerated physical therapy. PT recommend rehab recommended. Family looking at skilled rehab and later transition to long-term care. Continue PT. Physician Review Additional Text: Plan Blood pressure borderline low, we Dc amlodipine Continue IV hydralazine p.r.n. Continue PEG tube feeding Follow plan for discharge now Case management to arrange for transfer to SNF . PEG tube is in and functional. continue physical therapy. Rehab recommended. Family looking at skilled rehab and later transition to long-term care.
[2020-12-13] MEDS: MORPHINE 2 MG/ML SYR IV PRN (20:19)
[2020-12-14] MEDS: INSULIN -REGULAR HUMAN 50 UNIT/0.5 ML ML SQ SCH ×4 (05:11→18:00)
[2020-12-14] MEDS: SERTRALINE HCL 50 MG TAB PO SCH (07:54)
[2020-12-14] MEDS: methylPREDNISolone 4 MG TAB PO SCH ×2 (07:54→20:47)
[2020-12-14] MEDS: LEVOTHYROXINE SOD 0.075 MG TAB PO SCH (07:55)
--- NOTE | 2020-12-14 12:55 | P.PN ---
Subjective Date of Service: 12/14/20 Chief Complaint: anorexia, weakness, PEG tube dysfxn Patient has no new complain. Patient is tolerating PEG tube feeding and participating in physical therapy. Physical Examination - Vital Signs Temperature: 97 F Blood Pressure: 103/51 Pulse: 56 Respirations: 18 Pulse Ox (%): 98 - Physical Exam General: In no apparent distress, Other (Awake) Neck: JVD not distended Respiratory: Clear to auscultation bilaterally, Normal air movement Cardiovascular: No edema, Regular rate/rhythm, Normal S1 S2 Gastrointestinal: Soft and benign, Non-distended, No tenderness Musculoskeletal: No swelling Neurological: Other (No focal motor deficit) Assessment And Plan - Current Problems (Diagnosis) (1) Functional quadriplegia Current Visit: Yes Status: Resolved (2) PEG tube malfunction Current Visit: Yes Status: Acute (3) Hypothyroidism Current Visit: Yes Status: Chronic Qualifiers: Hypothyroidism type: unspecified Qualified Code(s): E03.9 - Hypothyroidism, unspecified (4) Polymyalgia rheumatica Current Visit: Yes Status: Chronic (5) Dysphagia Onset Date: 05/08/15 Current Visit: No Status: Acute Qualifiers: Dysphagia type: unspecified Qualified Code(s): R13.10 - Dysphagia, unspecified - Plan Continue PEG tube feeding. He is also tolerating physical therapy. PT recommend rehab recommended. Family looking at skilled rehab and later transition to long-term care. Continue PT. Awaiting SNF placement.
[2020-12-14] MEDS: MORPHINE 2 MG/ML SYR IV PRN (20:47)
[2020-12-15] MEDS: INSULIN -REGULAR HUMAN 50 UNIT/0.5 ML ML SQ SCH ×4 (05:42→18:00)
[2020-12-15] MEDS: LEVOTHYROXINE SOD 0.075 MG TAB PO SCH (08:38)
[2020-12-15] MEDS: SERTRALINE HCL 50 MG TAB PO SCH (08:38)
[2020-12-15] MEDS: methylPREDNISolone 4 MG TAB PO SCH ×2 (08:38→21:05)
[2020-12-15] MEDS: GENTAMICIN 0.3% OPTH OINT 3.5GM EACH EYE SCH ×2 (11:15→21:03)
--- NOTE | 2020-12-15 13:58 | P.PN ---
Subjective Date of Service: 12/15/20 Chief Complaint: anorexia, weakness, PEG tube dysfxn Patient has no new complain. Patient is tolerating PEG tube feeding and participating in physical therapy. Physical Examination - Vital Signs Temperature: 97.6 F Blood Pressure: 136/69 Pulse: 57 Respirations: 18 Pulse Ox (%): 97 - Physical Exam General: In no apparent distress, Other (Awake) HEENT: Other (Redness-right eye with discharge.) Neck: JVD not distended Respiratory: Clear to auscultation bilaterally, Normal air movement Cardiovascular: No edema, Regular rate/rhythm, Normal S1 S2 Gastrointestinal: Normal bowel sounds, Soft and benign, Non-distended, No tenderness Musculoskeletal: No swelling Neurological: Other (No focal motor deficit.) Assessment And Plan - Current Problems (Diagnosis) (1) Functional quadriplegia Current Visit: Yes Status: Resolved (2) PEG tube malfunction Current Visit: Yes Status: Acute (3) Hypothyroidism Current Visit: Yes Status: Chronic Qualifiers: Hypothyroidism type: unspecified Qualified Code(s): E03.9 - Hypothyroidism, unspecified (4) Polymyalgia rheumatica Current Visit: Yes Status: Chronic (5) Dysphagia Onset Date: 05/08/15 Current Visit: No Status: Acute Qualifiers: Dysphagia type: unspecified Qualified Code(s): R13.10 - Dysphagia, unspecified (6) Conjunctivitis Current Visit: Yes Status: Acute - Plan Continue PEG tube feeding. He is also tolerating physical therapy. Start gentamicin ointment for conjunctivitis. Continue PT. Awaiting SNF placement.
[2020-12-15] MEDS ORDERED: GENTAMICIN 0.3% OPTH OINT 3.5GM EACH EYE SCH (21:00)
[2020-12-15] MEDS: JEVITY 1.2 CAL LIQUID 1,000 ML BOT RTH SCH (21:07)
[2020-12-16] MEDS: INSULIN -REGULAR HUMAN 50 UNIT/0.5 ML ML SQ SCH ×4 (05:32→17:53)
[2020-12-16] MEDS: LEVOTHYROXINE SOD 0.075 MG TAB PO SCH (07:30)
--- NOTE | 2020-12-16 08:19 | P.PN ---
Subjective Date of Service: 12/16/20 Chief Complaint: anorexia, weakness, PEG tube dysfxn Patient has no new complain. Patient is tolerating PEG tube feeding and participating in physical therapy. He has redness and discharge in both eyes which are improving. Physical Examination - Vital Signs Temperature: 97.1 F Blood Pressure: 123/51 Pulse: 57 Respirations: 16 Pulse Ox (%): 96 - Physical Exam General: Alert, In no apparent distress, Cachectic HEENT: Mucous membr. moist/pink Respiratory: Clear to auscultation bilaterally, Normal air movement Cardiovascular: No edema, Regular rate/rhythm, Normal S1 S2 Gastrointestinal: Normal bowel sounds, Soft and benign, Non-distended Musculoskeletal: No swelling Neurological: Other (No focal motor deficit) Assessment And Plan - Current Problems (Diagnosis) (1) PEG tube malfunction Current Visit: Yes Status: Acute (2) Hypothyroidism Current Visit: Yes Status: Chronic Qualifiers: Hypothyroidism type: unspecified Qualified Code(s): E03.9 - Hypothyroidism, unspecified (3) Polymyalgia rheumatica Current Visit: Yes Status: Chronic (4) Dysphagia Onset Date: 05/08/15 Current Visit: No Status: Acute Qualifiers: Dysphagia type: unspecified Qualified Code(s): R13.10 - Dysphagia, unspecified (5) Conjunctivitis Current Visit: Yes Status: Acute - Plan Continue PEG tube feeding. He is tolerating physical therapy. Gentamicin ointment for conjunctivitis. Continue PT. Awaiting SNF placement.
[2020-12-16 08:32] LABS: Basophils % 0.2 % (0-1.3); MPV 8.8 fL (7.6-11.3); RBC Red Blood Cell Count 3.93 M/uL (4.33-5.43)
[2020-12-16 08:42] LABS: BUN Blood Urea Nitrogen 22 mg/dL (7-18); Bicarbonate 33 mmol/L (21-32); Glucose Level 110 mg/dL (74-106); Potassium 4.2 mmol/L (3.5-5.1); Sodium Level 138 mmol/L (136-145)
[2020-12-16] MEDS: SERTRALINE HCL 50 MG TAB PO SCH (08:43)
[2020-12-16] MEDS: GENTAMICIN 0.3% OPTH OINT 3.5GM EACH EYE SCH ×2 (08:44→21:23)
[2020-12-16] MEDS: methylPREDNISolone 4 MG TAB PO SCH ×2 (08:44→21:22)
[2020-12-16] MEDS: JEVITY 1.2 CAL LIQUID 1,000 ML BOT RTH SCH (15:36)
[2020-12-17] MEDS: INSULIN -REGULAR HUMAN 50 UNIT/0.5 ML ML SQ SCH ×4 (05:37→16:23)
[2020-12-17] MEDS: SERTRALINE HCL 50 MG TAB PO SCH (08:13)
[2020-12-17] MEDS: LEVOTHYROXINE SOD 0.075 MG TAB PO SCH (08:13)
[2020-12-17] MEDS: GENTAMICIN 0.3% OPTH OINT 3.5GM EACH EYE SCH ×2 (08:13→21:00)
[2020-12-17] MEDS: methylPREDNISolone 4 MG TAB PO SCH ×2 (08:13→21:00)
--- NOTE | 2020-12-17 15:19 | P.PN ---
Subjective Date of Service: 12/17/20 Chief Complaint: anorexia, weakness, PEG tube dysfxn Subjective: No new changes (No acute events overnight, tolerating PEG tube feeds, patient without complaints) Review of Systems 10-point ROS is otherwise unremarkable Physical Examination - Vital Signs Temperature: 97.6 F Blood Pressure: 143/61 Pulse: 64 Respirations: 18 Pulse Ox (%): 98 Assessment & Plan Physician Review Additional Text: Physical Exam General: Alert, In no apparent distress, Cachectic HEENT: Mucous membr. moist/pink Respiratory: Clear to auscultation bilaterally, Normal air movement Cardiovascular: No edema, Regular rate/rhythm, Normal S1 S2 Gastrointestinal: Normal bowel sounds, Soft and benign, Non-distended Musculoskeletal: No swelling Neurological: Other (No focal motor deficit) Problem list Dehydration/malnutrition PEG tube malfunction Hypothyroidism Polymyalgia rheumatica Dysphagia Bilateral Conjunctivitis Continue PEG tube feeding. Patient is tolerating well Continue physical therapy Continue Gentamicin ointment for conjunctivitis. Awaiting SNF placement. vitals/labs stable -Dispo: dc to SNF/rehab, awaiting approval Time Spent Managing Pts Care (In Minutes): 35
[2020-12-18 05:33] LABS: Hematocrit 33.9 % (39.6-49.0); MPV 8.6 fL (7.6-11.3); RBC Red Blood Cell Count 3.77 M/uL (4.33-5.43)
[2020-12-18] MEDS: INSULIN -REGULAR HUMAN 50 UNIT/0.5 ML ML SQ SCH ×4 (06:00→17:11)
[2020-12-18 06:17] LABS: BUN Blood Urea Nitrogen 22 mg/dL (7-18); Bicarbonate 30 mmol/L (21-32); Glucose Level 115 mg/dL (74-106); Potassium 4.3 mmol/L (3.5-5.1); Sodium Level 139 mmol/L (136-145)
[2020-12-18] MEDS: LEVOTHYROXINE SOD 0.075 MG TAB PO SCH (07:30)
[2020-12-18] MEDS: GENTAMICIN 0.3% OPTH OINT 3.5GM EACH EYE SCH ×2 (09:00→21:10)
[2020-12-18] MEDS: methylPREDNISolone 4 MG TAB PO SCH ×2 (09:01→21:00)
[2020-12-18] MEDS: SERTRALINE HCL 50 MG TAB PO SCH (09:01)
--- NOTE | 2020-12-18 13:03 | P.PN ---
Subjective Date of Service: 12/18/20 Chief Complaint: anorexia, weakness, PEG tube dysfxn Subjective: No new changes (tolerating tube feeds, without complaints, awaiting insurance approval for SNF, BM this morning) Review of Systems 10-point ROS is otherwise unremarkable Physical Examination - Vital Signs Temperature: 97.5 F Blood Pressure: 164/70 Pulse: 60 Respirations: 15 Pulse Ox (%): 97 Assessment & Plan Physician Review Additional Text: Physical Exam General: AAOx2, cachectic, NAD HEENT: Mucous membr. moist/pink, minimal erythema of b/l eyelids Respiratory: Clear to auscultation bilaterally, Normal air movement Cardiovascular: No edema, Regular rate/rhythm, Normal S1 S2 Gastrointestinal: Normal bowel sounds, Soft and benign, Non-distended Musculoskeletal: No swelling Neurological: AAO2, generalized weakness, no focal findings Problem list Dehydration/malnutrition PEG tube malfunction Hypothyroidism Polymyalgia rheumatica Dysphagia Bilateral Conjunctivitis Continue PEG tube feeding. Patient is tolerating well Continue physical therapy Continue Gentamicin ointment for conjunctivitis. Awaiting SNF placement / insurance approval vitals/labs stable Dispo: dc to SNF/rehab, awaiting approval Time Spent Managing Pts Care (In Minutes): 35
[2020-12-19] MEDS: JEVITY 1.2 CAL LIQUID 1,000 ML BOT RTH SCH (05:36)
[2020-12-19] MEDS: INSULIN -REGULAR HUMAN 50 UNIT/0.5 ML ML SQ SCH ×2 (06:00)
[2020-12-19 09:51] VITALS: O2SAT 98
--- NOTE | 2020-12-19 10:21 | P.PN ---
Subjective Date of Service: 12/19/20 Chief Complaint: anorexia, weakness, PEG tube dysfxn Subjective: No new changes (without complaints, no acute events. tolerating PEG tube feeds. continues with generalized weakness, denies nausea/vomiting, +BM yesterday) Review of Systems 10-point ROS is otherwise unremarkable Physical Examination - Vital Signs Temperature: 97.6 F Blood Pressure: 126/64 Pulse: 54 Respirations: 18 Pulse Ox (%): 96 Assessment & Plan Physician Review Additional Text: Physical Exam General: AAOx2, cachectic, NAD HEENT: Mucous membr. moist/pink, no erythema of b/l eyelids Respiratory: Clear to auscultation bilaterally, Normal air movement Cardiovascular: No edema, Regular rate/rhythm, Normal S1 S2 Gastrointestinal: Soft and benign, Non-distended, PEG tube in place Musculoskeletal: No swelling Neurological: AAO2, generalized weakness, no focal findings Problem list Dehydration/malnutrition PEG tube malfunction now s/p PEG placement Hypothyroidism Polymyalgia rheumatica Dysphagia Bilateral Conjunctivitis Continue PEG tube feeding. Patient is tolerating well Continue physical therapy Continue Gentamicin ointment for conjunctivitis. Awaiting SNF placement / insurance approval working with PT would benefit from SNF, poor mobility/function, tube feeds Dispo: dc to SNF, awaiting insurance approval Time Spent Managing Pts Care (In Minutes): 35
[2020-12-19] MEDS: SERTRALINE HCL 50 MG TAB PO SCH (10:26)
[2020-12-19] MEDS: LEVOTHYROXINE SOD 0.075 MG TAB PO SCH (10:27)
[2020-12-19] MEDS: GENTAMICIN 0.3% OPTH OINT 3.5GM EACH EYE SCH (10:27)
[2020-12-19] MEDS: methylPREDNISolone 4 MG TAB PO SCH (10:28)
--- NOTE | 2020-12-19 13:10 | P.DS ---
Admission Date: 12/09/20 Discharge Date: 12/19/20 Disposition: TRANSFER TO SNF - MEDICAL Reason for Admission: anorexia, weakness, PEG tube dysfxn Consultations: GI - Dr. Alford Procedures: CT Head/C-spine/Chest/Abd/Pelvis (12/09): CT HEAD: 1. No acute intracranial or extra-axial abnormality. CT CERVICAL SPINE: No acute injury. CT CHEST: 1. Acute appearing right anterior 4th through 6th and right posterior lateral 6th rib fractures. CT ABDOMEN PELVIS: 1. No evidence for hollow or solid organ injury. 2. L2 compression fracture with progressive loss of height, now approximately 30%. Problem list Dehydration/malnutrition PEG tube malfunction now s/p PEG placement Hypothyroidism 4 rib fractures s/p fall (11/21) Polymyalgia rheumatica Dysphagia Bilateral Conjunctivitis Brief History of Present Illness: Mr. Mack is an 89 yo M with HTN, hypothyroidism, polymyalgia rheumatica, BPH, urinary incontinence, and depression here today for increased anorexia, dysphagia, weight loss and weakness since a fall on 11/21 and sustained 4 rib fractures. Since the fall, he has steadily declined. Before the fall he was able to walk with a cane, but now he has been bed bound. He started PT last week and the PT agrees that he has been getting worse. He has a PEG tube that was placed 2.5 years ago that was supposed to be replaced a year ago but was postponed due to COVID. The PEG tube is unusable, and he has been unable to eat and drink and talk due to increasing dysphagia. This has happened twice before over the last two years with the most recent time 2.5 years ago when the peg tube was placed. Hospital Course: Patient was hydrated, GI consulted and PEG tube was replaced. He tolerated tube feeds well and improved. He was very debilitated / weak. Patient was discharged to SNF to continue working with PT/OT and continue tube feeds. During his hospitalization he developed some crusting and erythema to both eye lids. He was treated with gentamicin ointment and had resolution of symptoms. Vital Signs/Physical Exam: Physical Exam General: AAOx3, cachectic, NAD HEENT: Mucous membr. moist/pink, no erythema/crusting Respiratory: Clear to auscultation bilaterally, Normal air movement Cardiovascular: No edema, Regular rate/rhythm, Normal S1 S2 Gastrointestinal: Soft and benign, Non-distended, PEG tube in place Musculoskeletal: No swelling Neurological: AAOx3, generalized weakness Temp Pulse Resp BP Pulse Ox 97.6 F 54 18 126/64 96 12/19/20 10:20 12/19/20 10:20 12/19/20 10:20 12/19/20 10:20 12/19/20 10:20 Laboratory Data at Discharge: WBC 3.20 K/uL (4.3-10.9) L 12/18/20 05:13 Hgb 12.0 g/dL (13.6-17.9) L 12/18/20 05:13 Hct 33.9 % (39.6-49.0) L 12/18/20 05:13 Plt Count 111 K/uL (152-406) L 12/18/20 05:13 Sodium 139 mmol/L (136-145) 12/18/20 05:13 Potassium 4.3 mmol/L (3.5-5.1) 12/18/20 05:13 BUN 22 mg/dL (7-18) H 12/18/20 05:13 Creatinine 0.61 mg/dL (0.55-1.3) 12/18/20 05:13 Glucose 115 mg/dL (74-106) H 12/18/20 05:13 Phosphorus 3.4 mg/dL (2.5-4.9) 12/13/20 05:50 Magnesium 2.1 mg/dL (1.8-2.4) 12/13/20 05:50 Total Bilirubin 1.0 mg/dL (0.2-1.0) 12/10/20 05:07 AST 13 U/L (15-37) L 12/10/20 05:07 ALT 10 U/L (12-78) L 12/10/20 05:07 Alkaline Phosphatase 278 U/L (45-117) H 12/10/20 05:07 Lipase 94 U/L (73-393) 12/09/20 22:00 Home Medications: Sertraline [Zoloft*] 25 mg PO DAILY 05/08/15 methylPREDNISolone [Medrol*] 8 mg PO BID 05/08/15 Levothyroxine [Synthroid*] 1 tab PO DAILY 12/10/20 Amlodipine [Norvasc*] 1 tab PO DAILY 12/11/20 Physician Discharge Instructions: PROBLEM: Anorexia, weight loss, dehydration GOAL: Clear understanding of disease process INSTRUCTIONS: Diet: tube feeds Activity: Fall precautions Your PEG tube was replaced and you have been tolerating tube feeds well. [facility] are [facility] to continue tube feeds and physical therapy. Continue home medications as previously prescribed. You were also treated for bilateral conjunctivitis with 5 days of gentamicin (antibiotic) ointment and this resolved. Follow up with PCP within 1 week of discharge from detention facility. Due to high risk for aspiration, recommend continuous feeds using Jevity 1.2 with goal rate of 55 ml/hr, which will provide 1584 calories, 73 grams protein, 1065ml free water and will meet 92% of patient's estimated calorie needs and 100% of protein needs. 1.) Jevity 1.2 with goal rate of 55 ml/hr 3.) Flush with 45ml water every 4hrs to provide a total of 1335ml water/day or as per MD 4.) Monitor EN tolerance and hydration [facility]: [phone] Diet: tube feeds Activity: Fall precautions Followup: Khoi Maddox MD [Primary Care Provider] - Time spent managing pt's care (in minutes): 35
[2020-12-19 17:30] VITALS: BP 119/58; TEMP 97.3
== END 2020-12-19 19:35 | DRG 393 ==
LOC: ER 19:39 → ERHOLD 23:40 → 4TH 12-10 06:44 → 2ND 12-15 20:07
PROVIDERS: ADMIT Internal Medicine; ATTEND Hospitalist
DX: K94.23 Gastrostomy malfunction (principal); R53.2 Functional quadriplegia; E44.0 Moderate protein-calorie malnutrition; Z68.1 Body mass index [BMI] 19.9 or less, adult; E16.2 Hypoglycemia, unspecified; E86.0 Dehydration; I10 Essential (primary) hypertension; L53.9 Erythematous condition, unspecified; H10.9 Unspecified conjunctivitis; E03.9 Hypothyroidism, unspecified; N40.0 Benign prostatic hyperplasia without lower urinary tract symptoms; F32.9 Major depressive disorder, single episode, unspecified; M35.3 Polymyalgia rheumatica; S22.41XG Multiple fractures of ribs, right side, subsequent encounter for fracture with delayed healing; R13.10 Dysphagia, unspecified; Y84.8 Other medical procedures as the cause of abnormal reaction of the patient, or of later complication, without mention of misadventure at the time of the procedure; Z79.899 Other long term (current) drug therapy; Z87.891 Personal history of nicotine dependence; Z79.890 Hormone replacement therapy; Z85.46 Personal history of malignant neoplasm of prostate; Z90.49 Acquired absence of other specified parts of digestive tract; Z20.822 Contact with and (suspected) exposure to COVID-19
CPT/HCPCS: 36415; 49465; 70450; 71260; 72125; 74177; 80048; 80053; 80076; 82947; 83690; 83735; 84100; 84132; 85025; 85027; 92610; 94760; 97110; 97112; 97116; 97161; 97530; 99251; 99285; J0360; J2270; J3475; J3480; J7030; J7509; J7799; Q9967; U0003